=== PATIENT | female | born 1950 | race Caucasian/White ===

== ENCOUNTER 2020-01-13 12:46 | Emergency (ER) | payer MEDICARE, MEDICAID, SELFPAY ==
[2020-01-13 12:47] VITALS: BP 127/72; PULSE 75; RESP 18; TEMP 36.6; O2SAT 95; BMI 31.4
--- NOTE | 2020-01-13 12:52 | W.ED.BACK ---
HPI - Back Pain/Injury General: Chief Complaint: Back Pain/Injury Stated Complaint: LOW BACK PAIN S/P FALL Time Seen by Provider: 01/13/20 12:50 History of Present Illness: HPI Narrative: Patient is a 69-year-old female comes to the ED with lower back pain after a fall. Patient has a history of chronic lower back pain with bladder and bowel incontinence. Patient says fall occurred last January 09. Patient says she was walking in her parking lot and her legs gave out on her she lost balance and fell back. Patient that she had her lower back and the back of her head hit as well. Patient says she hit hard concrete surface. Denies any loss of consciousness, nausea or vomiting after fall. Patient says she currently is experiencing increasing lower back pain. Patient describes chronically having pain radiating down her left leg but after fall it radiates down both her left and right leg.. She currently rates her back pain 9 out of 10. Patient currently has bladder and bowel incontinence and says there is been no change in that since fall. Associated symptoms: Deny abdominal pain, chills, dysuria, fatigue, fever(s), hematuria, nausea or vomiting Review of Systems Const: Denies: fever(s), chills or fatigue Eyes: Denies: change in vision or eye discomfort ENMT: Denies: throat pain, odynophagia, nasal discharge or nasal congestion Card: Denies: chest pain, palpitations, edema, swelling of feet/ankles, dyspnea on exertion or orthopnea Resp: Denies: dyspnea, productive cough or non-productive cough GI: Denies: abdominal pain, nausea, vomiting, diarrhea, constipation or hematochezia : Denies: flank pain, dysuria or hematuria Musc: Reports: back pain (lower back pain with radiating pain down both r and l lower extremities.); Denies: neck pain or extremity swelling Skin/Breast: Denies: rash or new lesions Neuro: Denies: headache(s), numbness in extremities or weakness in extremities Physical Exam Const: COMMON NORMALS: patient oriented x3 and alert HENMT: COMMON NORMALS: normocephalic HEAD & SCALP: normocephalic MOUTH: Normal oral and palatal mucosa present THROAT: posterior oropharynx normal and uvula midline Eye: COMMON NORMALS: Equal, round and reactive pupils present, EOMs intact bilaterally, conjunctivae normal and normal visual [place] by confrontation CONJUNCTIVA: Yes conjunctivae normal PUPIL: Yes Equal, round and reactive pupils present Neck/C-Spine: COMMON NORMALS: supple GENERAL: Yes normal visual inspection Resp: COMMON NORMALS: normal respiratory effort, No retractions, No use of accessory muscles and clear to auscultation bilaterally AUSCULTATION: clear to auscultation bilaterally Cardio: COMMON NORMALS: regular rate, regular rhythm, S1 normal heart sound present, S2 normal heart sound present, No gallops present (Cardio), No clicks present (Cardio), No murmurs present (Cardio) and Peripheral pulses 2+ throughout RATE: regular rate RHYTHM: regular rhythm HEART SOUNDS: S1 normal heart sound present and S2 normal heart sound present PERIPHERAL PULSES: Peripheral pulses 2+ throughout GI: COMMON NORMALS: Normal to inspection, nondistended, normoactive bowel sounds present, Soft to palpation, non-tender and no masses PALPATION: Yes Soft to palpation : COMMON NORMALS: Yes no CVA tenderness BLADDER/KIDNEY EXAM: Yes no CVA tenderness Back/Pelvis: COMMON NORMALS: no CVA tenderness LUMBAR SPINE/LOWER BACK: Yes paraspinal muscle tenderness Extremity: COMMON NORMALS: normal to inspection and no pedal edema Neuro: COMMON NORMALS: patient oriented x3, CN's II-XII intact bilaterally, moves all extremities, no focal motor deficits and no sensory deficits noted SENSORIUM/ORIENTATION: Yes alert COORDINATION/BALANCE: [id number] test normal SENSORY EXAM: Yes extremities (sensation intact) MOTOR EXAM: 5/5 motor strength present throughout COORDINATION: poilwk-tf-whox test normal Skin: COMMON NORMALS: no rashes or lesions noted GENERAL SKIN EXAM: no rashes or lesions noted and dry skin Course Vital Signs: Vital signs: Vital Signs Temperature 97.9 F 01/13/20 12:47 Pulse Rate 74 01/13/20 15:37 Respiratory Rate 18 01/13/20 12:47 Blood Pressure 125/83 01/13/20 15:37 Pulse Oximetry 91 01/13/20 15:37 MDM - Back Pain/Injury MDM Narrative: Medical decision making narrative: Patient is a 69-year-old female comes to the ED after having a fall approximately 3 days ago. Patient says she fell back and hit him lower back and the back of her head hit the ground. Denies any loss of consciousness neuro symptoms. Patient does state that her lower back pain is gotten worse now she has pain rating down both her left and right legs. Physical exam showed some lumbar muscle tenderness and neuro exam are unremarkable. CT of head showed no acute findings. CT lumbar spine showed no acute fractures or foraminal narrowing or disc bulge. Was discharged and diagnosed with lumbar back pain after fall. She was told to take Tylenol for pain and to rest and ice lower back to help with symptoms. Return to ED precautions given. Follow-up with PCP in 7 to 10 days. Patient understood and agreed with plan. Imaging Data^: CT Head: Attestation: I personally reviewed and interpreted this imaging study as follows: Radiologist's impression: [address] [place] [address] CT Scan Report Signed Patient: Sara Del Real Unit #: [id number] : 1950 Age/Sex: 69 / F ADM Date: 01/13/20 Loc: ER Room/Bed: Attending Dr: Ordering Provider/Ordering MD: Darío Aquino Date of Service: 01/13/20 Procedure(s): CT head wo con* [id number] Accession Number(s): [id number] Report Number: [id number] PROCEDURE INFORMATION: Exam: CT Head Without Contrast Exam date and time: 01/13/2020 2:25 PM Age: 69 years old Clinical indication: Injury or trauma; Initial encounter; Blunt trauma (contusions or hematomas); With loss of consciousness; Loss of consciousness for 30 minutes or less; Patient HX: Backwards fall while walking 3 days ago C/O ARIAS w +loc; Additional info: Fall and hit head TECHNIQUE: Imaging protocol: Computed tomography of the head without contrast. Radiation optimization: All CT scans at this facility use at least one of these dose optimization techniques: automated exposure control; mA and/or kV adjustment per patient size (includes targeted exams where dose is matched to clinical indication); or iterative reconstruction. COMPARISON: CT head wo con* [id number] 11/22/2017 8:08 PM RADIATION DOSE METRICS: Total DLP (mGy-cm): 729.5 FINDINGS: Brain: Periventricular and subcortical white matter low densities are present which at this age likely represent microvascular ischemic change. No evidence for large acute ischemic infarction. Please note acute ischemia can be occult by head CT. Ventricles: No ventriculomegaly. Bones/joints: Unremarkable. No acute fracture. Paranasal sinuses: Visualized sinuses are unremarkable. No fluid levels. Mastoid air cells: Visualized mastoid air cells are well aerated. Vasculature: Calcified plaque is present within the carotid siphons. Soft tissues: Unremarkable. CT/CT head wo con* [id number] IMPRESSION: There are senescent changes of the brain as described above. No evidence for large acute ischemic infarction or acute intracranial injury. Radiation Dose CTDIVOL = (mGy): DLP = 729.5 (mGy-cm) Dictated By: Geeta Garcia MD Signed By: Geeta Garcia MD Signed Date/Time: 01/13/201510 DD/ [address]: Attestation: I personally reviewed and interpreted this imaging study as follows: Radiologist's impression: [place] [address] CT Scan Report Signed Patient: Sara Del Real Unit #: [id number] : 1950 Age/Sex: 69 / F ADM Date: 01/13/20 Loc: ER Room/Bed: Attending Dr: Ordering Provider/Ordering MD: Darío Aquino Date of Service: 01/13/20 Procedure(s): CT lumbar spine wo con* [id number] Accession Number(s): [id number] Report Number: [id number] PROCEDURE INFORMATION: Exam: CT Lumbar Spine Without Contrast Exam date and time: 01/13/2020 2:25 PM Age: 69 years old Clinical indication: Injury or trauma; Initial encounter; Blunt trauma (contusions or hematomas); Patient HX: Backwards fall while walking 3 days ago C/O worsened chronic lbp; Additional info: Fall with lumbar pain TECHNIQUE: Imaging protocol: Computed tomography images of the lumbar spine without contrast. Radiation optimization: All CT scans at this facility use at least one of these dose optimization techniques: automated exposure control; mA and/or kV adjustment per patient size (includes targeted exams where dose is matched to clinical indication); or iterative reconstruction. COMPARISON: No relevant prior studies available. RADIATION DOSE METRICS: Total DLP (mGy-cm): 2314.76 FINDINGS: Vertebrae: No acute fracture. Advanced facet arthrosis L4/L5. Minimal anterior spondylolisthesis L4 on L5 secondary to ligamentous laxity from the facet disease. Mild facet arthrosis L5/S1. Discs/Spinal canal/Neural foramina: No significant disc protrusion. No severe spinal canal stenosis. No significant neural foraminal narrowing. Mild central canal narrowing L4/L5 secondary to a mild posterior disc bulge aggravated by ligamentum flavum hypertrophy and facet arthrosis. Soft tissues: Unremarkable. CT/CT lumbar spine wo con* [id number] IMPRESSION: No acute findings. Radiation Dose CTDIVOL = (mGy): DLP = 2314.76 (mGy-cm) Dictated By: Domo Giang Signed By: Domo Giang Signed Date/Time: 01/13/201505 DD/ 03 Discharge Plan Discharge Patient Disposition: Home Clinical Impression: Lumbar back pain Fall as cause of accidental injury at home as place of occurrence Qualifiers: Encounter type: initial encounter Qualified Code(s): W19.XXXA - Unspecified fall, initial encounter Condition: Stable Prescriptions: No Action hydrocodone-acetaminophen 5-325 mg tablet 1 tab PO TID PRN (Reason: Pain) RF: 0 ondansetron HCl 8 mg tablet 8 mg PO TID PRN (Reason: Nausea) RF: 0 clonazepam 0.5 mg tablet 0.5 mg PO TID PRN (Reason: unknown) RF: 0 baclofen 20 mg tablet 20 mg PO TID RF: 0 nortriptyline 25 mg capsule 25 - 50 mg PO BEDTIME RF: 0 lisinopril 10 mg tablet 10 mg PO DAILY RF: 0 omeprazole 20 mg capsule,delayed release(DR/EC) 20 mg PO DAILY RF: 0 hydrochlorothiazide 25 mg tablet 25 mg PO DAILY RF: 0 Advair Diskus 100-50 mcg/dose blister with device 2 ea INHALATION BID RF: 0 Ventolin HFA 90 mcg/actuation HFA aerosol inhaler 2 puff INHALATION Q4H PRN (Reason: Shortness Of Breath) RF: 0 escitalopram oxalate 20 mg tablet 20 mg PO BID RF: 0 pregabalin 200 mg capsule 200 mg PO TID RF: 0 Narcan 4 mg/actuation spray,non-aerosol See Rx Instructions .ROUTE .COMPLEX RF: 0 Discharge Orders: Discharge Order (Routine); Ordered 01/13/20 Ordered By: Darío Aquino Referrals: Carroll Johnson [Primary Care Provider] - Discharge Diet: Regular Discharge Activity: Increase activity as tolerated Patient Instructions: Acute Low Back Pain (ED), Chronic Back Pain (ED) Activity Restrictions/Additional Instructions: Follow-up with medical provider as directed in 7 days. Take [id number] Tylenol for pain. Apply cold pack or heat on lower back to help with symptoms. Return to the ER or your medical provider if condition worsens. Please read and understand discharge instructions. If any questions, please ask. Discharge Date/Time: 01/13/20 15:37 Coding Level of Care Code ED Electrical Development Engineer for [facility] Fwd Exam Comprehensive
--- NOTE | 2020-01-13 13:02 | CTR_ITS ---
PROCEDURE INFORMATION: Exam: CT Head Without Contrast Exam date and time: 01/13/2020 2:25 PM Age: 69 years old Clinical indication: Injury or trauma; Initial encounter; Blunt trauma (contusions or hematomas); With loss of consciousness; Loss of consciousness for 30 minutes or less; Patient HX: Backwards fall while walking 3 days ago C/O ARIAS w +loc; Additional info: Fall and hit head TECHNIQUE: Imaging protocol: Computed tomography of the head without contrast. Radiation optimization: All CT scans at this facility use at least one of these dose optimization techniques: automated exposure control; mA and/or kV adjustment per patient size (includes targeted exams where dose is matched to clinical indication); or iterative reconstruction. COMPARISON: CT head wo con* [id number] 11/22/2017 8:08 PM RADIATION DOSE METRICS: Total DLP (mGy-cm): 729.5 FINDINGS: Brain: Periventricular and subcortical white matter low densities are present which at this age likely represent microvascular ischemic change. No evidence for large acute ischemic infarction. Please note acute ischemia can be occult by head CT. Ventricles: No ventriculomegaly. Bones/joints: Unremarkable. No acute fracture. Paranasal sinuses: Visualized sinuses are unremarkable. No fluid levels. Mastoid air cells: Visualized mastoid air cells are well aerated. Vasculature: Calcified plaque is present within the carotid siphons. Soft tissues: Unremarkable. CT/CT head wo con* [id number] IMPRESSION: There are senescent changes of the brain as described above. No evidence for large acute ischemic infarction or acute intracranial injury. Radiation Dose CTDIVOL = (mGy): DLP = 729.5 (mGy-cm)
--- NOTE | 2020-01-13 13:02 | CTR_ITS ---
PROCEDURE INFORMATION: Exam: CT Lumbar Spine Without Contrast Exam date and time: 01/13/2020 2:25 PM Age: 69 years old Clinical indication: Injury or trauma; Initial encounter; Blunt trauma (contusions or hematomas); Patient HX: Backwards fall while walking 3 days ago C/O worsened chronic lbp; Additional info: Fall with lumbar pain TECHNIQUE: Imaging protocol: Computed tomography images of the lumbar spine without contrast. Radiation optimization: All CT scans at this facility use at least one of these dose optimization techniques: automated exposure control; mA and/or kV adjustment per patient size (includes targeted exams where dose is matched to clinical indication); or iterative reconstruction. COMPARISON: No relevant prior studies available. RADIATION DOSE METRICS: Total DLP (mGy-cm): 2314.76 FINDINGS: Vertebrae: No acute fracture. Advanced facet arthrosis L4/L5. Minimal anterior spondylolisthesis L4 on L5 secondary to ligamentous laxity from the facet disease. Mild facet arthrosis L5/S1. Discs/Spinal canal/Neural foramina: No significant disc protrusion. No severe spinal canal stenosis. No significant neural foraminal narrowing. Mild central canal narrowing L4/L5 secondary to a mild posterior disc bulge aggravated by ligamentum flavum hypertrophy and facet arthrosis. Soft tissues: Unremarkable. CT/CT lumbar spine wo con* [id number] IMPRESSION: No acute findings. Radiation Dose CTDIVOL = (mGy): DLP = 2314.76 (mGy-cm)
[2020-01-13] MEDS: HYDROcodone-acetaminophen 7.5-325 mg Tablet 1 TAB PO (13:16)
[2020-01-13 15:37] VITALS: BP 125/83; PULSE 74; O2SAT 91
== END 2020-01-13 15:37 | disposition home or self-care (01) ==
PROVIDERS: Emergency Provider Physician Assistant; PCP Family Medicine
DX: M54.5 Low back pain (principal)
CPT/HCPCS: 12345; 70450; 72131; 99281; 99283

== ENCOUNTER 2021-02-27 14:37 | Emergency (ER) | payer MEDICARE, MEDICAID, SELFPAY ==
[2021-02-27 15:06] VITALS: BP 153/90; PULSE 79; RESP 18; TEMP 36.4; O2SAT 98; BMI 28.3
[2021-02-27 15:21] VITALS: BP 153/90; PULSE 79; RESP 18; TEMP 36.4; O2SAT 98
--- NOTE | 2021-02-27 15:54 | XR_ITS ---
WS: [id number] LEFT FOOT: 3 VIEW(S) TECHNIQUE: AP, oblique and lateral. HISTORY: foot injury COMPARISON: 12/10/2016 Very limited evaluation of the foot due to the overlying partial cast. On the lateral projection ther e is no significant soft tissue swelling. The alignment appears normal. Limited evaluation on the PA projection but no gross abnormality. Prior fixation hardware at the ankle. XR/XR foot LT min 3V* [id number] IMPRESSION: 1. Limited evaluation of the foot due to partial cast material. 2. No obvious abnormality or fractures are identified on the lateral projectio n. PA projections very limited.
--- NOTE | 2021-02-27 15:55 | W.ED.FALL ---
HPI - Fall General: Chief Complaint: Fall Stated Complaint: L FOOT PAIN Time Seen by Provider: 02/27/21 15:16 History of Present Illness: HPI Narrative: Patient is a 71-year-old female comes to the ED with left foot pain after fall. Patient states that about 2 weeks ago she had a fall at home. She denies any head trauma or loss of consciousness. When she fell she says it twisted her left foot causing pain. Patient was seen at her primary care office and they told her that she had a fracture and wrapped her foot and some Luis wrap. She was discharged home with some hydrocodone to help with pain. She states that she is out of her hydrocodone and she is having increased pain in her left foot. Associated symptoms-after fall: Denies abdominal pain, chest pain, headache(s), hematuria or neck pain Review of Systems Const: Denies: fever(s), chills or fatigue Eyes: Denies: change in vision or eye discomfort ENMT: Denies: throat pain, odynophagia, nasal discharge or nasal congestion Card: Denies: chest pain, palpitations, edema, swelling of feet/ankles, dyspnea on exertion or orthopnea Resp: Denies: dyspnea, productive cough or non-productive cough GI: Denies: abdominal pain, nausea, vomiting, diarrhea, constipation or hematochezia : Denies: flank pain, dysuria or hematuria Musc: Reports: extremity pain (left foot) and extremity swelling (left foot); Denies: neck pain or back pain Skin/Breast: Denies: rash or new lesions Neuro: Denies: headache(s), numbness in extremities or weakness in extremities Physical Exam Const: COMMON NORMALS: no acute distress, patient oriented x3 and alert GENERAL APPEARANCE: cooperative and comfortable HENMT: COMMON NORMALS: normocephalic HEAD & SCALP: normocephalic MOUTH: Normal oral and palatal mucosa present THROAT: posterior oropharynx normal and uvula midline Neck/C-Spine: COMMON NORMALS: supple GENERAL: Yes normal visual inspection Resp: COMMON NORMALS: normal respiratory effort, No retractions, No use of accessory muscles and clear to auscultation bilaterally AUSCULTATION: clear to auscultation bilaterally Cardio: COMMON NORMALS: regular rate, regular rhythm, S1 normal heart sound present, S2 normal heart sound present, No gallops present (Cardio), No clicks present (Cardio), No murmurs present (Cardio) and Peripheral pulses 2+ throughout RATE: regular rate RHYTHM: regular rhythm HEART SOUNDS: S1 normal heart sound present and S2 normal heart sound present PERIPHERAL PULSES: Peripheral pulses 2+ throughout GI: COMMON NORMALS: Normal to inspection, nondistended, normoactive bowel sounds present, Soft to palpation, non-tender and no masses PALPATION: Yes Soft to palpation : COMMON NORMALS: Yes no CVA tenderness BLADDER/KIDNEY EXAM: Yes no CVA tenderness Back/Pelvis: COMMON NORMALS: no CVA tenderness Extremity: LEFT LOWER EXTREMITY: Yes foot & digits (Patient came in with a posterior leg splint on) Left foot and digits: Yes inspection (Mild swelling and ecchymosis noted.), Yes palpation (Tenderness over midfoot), Yes ROM (Limited due to pain) and Yes neurovascular exam (Neurovascular intact.) Neuro: COMMON NORMALS: patient oriented x3 and moves all extremities SENSORIUM/ORIENTATION: Yes alert Skin: GENERAL SKIN EXAM: dry skin Course Vital Signs: Vital signs: Vital Signs Temperature 97.6 F 02/27/21 15:21 Pulse Rate 79 02/27/21 15:21 Respiratory Rate 18 02/27/21 15:21 Blood Pressure 153/90 02/27/21 15:21 Pulse Oximetry 98 02/27/21 15:21 MDM - Fall MDM Narrative: Medical decision making narrative: Patient is a 71-year-old female comes to the ED with left foot pain after a fall. Patient's left foot has some swelling, ecchymosis and tenderness in the midfoot region. Neurovascular intact and the rest of exam is benign. X-ray of left foot showed multiple nondisplaced metatarsal fractures along with a nondisplaced proximal phalanx fracture. I placed an order with case management for patient be referred to podiatry due to the multiple fractures in the left foot. Patient was put in a Ortho boot and discharged home with a prescription for hydrocodone 5/325 mg # 8 tablets. She was told to use her walker to help with ambulation. general sales manager will be contacting her in the next several days set up an appointment with Dr. Schumacher the computer forensics examiner. Return to ED precautions given. Patient understood and agreed with plan. Imaging Data^: Xray Ortho: Attestation: I personally reviewed and interpreted this imaging study as follows: Radiologist's impression: [facility] [address] [place] [address] XRay Report Signed Patient: Sara Del Real Unit #: [id number] : 1950 Age/Sex: 71 / F ADM Date: 02/27/21 Loc: ER Room/Bed: Attending Dr: Ordering Provider/Ordering MD: Darío Aquino Date of Service: 02/27/21 Procedure(s): XR foot LT min 3V* [id number] Accession Number(s): [id number] Report Number: [id number] WS: [id number] LEFT FOOT: 3 VIEW(S) TECHNIQUE: AP, oblique and lateral. HISTORY: repeat imaging after splint removal. COMPARISON: None available. Acute nondisplaced fractures are present through the proximal second, third, fourth and probably fifth metatarsals. Additional oblique fracture at the base of the fourth proximal phalanx. There is a fracture involving the proximal first metatarsal with intra-articular extension. Tarsometatarsal alignment remains normal. Irregularity involving the second metatarsal head may be from prior osteonecrosis. XR/XR foot LT min 3V* [id number] IMPRESSION: 1. Nondisplaced transverse fractures involving the second through fourth proximal metatarsals and possibly the fifth. 2. Nondisplaced oblique fracture proximal phalanx fourth toe. 3. Nondisplaced fracture proximal fifth metatarsal with extension into the joint. Dictated By: Gabbi Barbour DO Signed By: Gabbi Barbour DO Signed Date/Time: 02/27/211649 DD/ 164 Discharge Plan Discharge Patient Disposition: Home Clinical Impression: Closed fracture of proximal phalanx of toe of left foot Multiple closed fractures of metatarsal bone of left foot Qualifiers: Encounter type: initial encounter Qualified Code(s): S92.302A - Fracture of unspecified metatarsal bone(s), left foot, initial encounter for closed fracture Condition: Stable Prescriptions: No Action hydrocodone-acetaminophen 5-325 mg tablet 1 tab PO TID PRN (Reason: Pain) RF: 0 ondansetron HCl 8 mg tablet 8 mg PO TID PRN (Reason: Nausea) RF: 0 clonazepam 0.5 mg tablet 0.5 mg PO TID PRN (Reason: unknown) RF: 0 baclofen 20 mg tablet 20 mg PO TID RF: 0 nortriptyline 25 mg capsule 25 - 50 mg PO BEDTIME RF: 0 lisinopril 10 mg tablet 10 mg PO DAILY RF: 0 omeprazole 20 mg capsule,delayed release(DR/EC) 20 mg PO DAILY RF: 0 hydrochlorothiazide 25 mg tablet 25 mg PO DAILY RF: 0 Advair Diskus 100-50 mcg/dose blister with device 2 ea INHALATION BID RF: 0 Ventolin HFA 90 mcg/actuation HFA aerosol inhaler 2 puff INHALATION Q4H PRN (Reason: Shortness Of Breath) RF: 0 escitalopram oxalate 20 mg tablet 20 mg PO BID RF: 0 pregabalin 200 mg capsule 200 mg PO TID RF: 0 Narcan 4 mg/actuation spray,non-aerosol See Rx Instructions .ROUTE .COMPLEX RF: 0 Discharge Orders: Discharge ED (Routine); Ordered 02/27/21 Ordered By: Darío Aquino Referrals: Carroll Johnson [Primary Care Provider] - Discharge Diet: Regular Discharge Activity: Resume usual activity Patient Instructions: Foot Fracture in Adults (ED), Opioid Safety Activity Restrictions/Additional Instructions: Follow-up with medical provider as directed. Case management will be contacting you in the next several days set up an appoint with Dr. Schumacher the computer forensics examiner. Wear boot and limit weightbearing. Use walker to help with ambulation. Take medications as prescribed. Return to the ER or your medical provider if condition worsens. Please read and understand discharge instructions. Thank you for choosing [facility] for your healthcare needs today. Please realize this is an emergency room and that we are providing you with a medical screening exam and this may not be complete and all inclusive of all the testing and or work up that you may need to determine your ailment or severity of your illness. It is very important that you follow up as instructed or that you return to the Emergency Department should you have concerns or if your condition changes or worsens in any way. Coding Level of Care Code ED Automobile Locator for [facility] Fwfatimah Exam Comprehensive
[2021-02-27] MEDS: HYDROcodone-acetaminophen 5-325 mg Tablet 1 TAB PO (16:02)
--- NOTE | 2021-02-27 16:27 | XR_ITS ---
WS: [id number] LEFT FOOT: 3 VIEW(S) TECHNIQUE: AP, oblique and lateral. HISTORY: repeat imaging after splint removal. COMPARISON: None available. Acute nondisplaced fractures are present through the proximal second, third, fourth and probably fift h metatarsals. Additional oblique fracture at the base of the fourth proximal phalanx. There is a fra cture involving the proximal first metatarsal with intra-articular extension. Tarsometatarsal alignment remains normal. Irregularity involving the second metatarsal head may be from prior osteonecrosis. XR/XR foot LT min 3V* [id number] IMPRESSION: 1. Nondisplaced transverse fractures involving the second through fourth proxi mal metatarsals and possibly the fifth. 2. Nondisplaced oblique fracture proximal phalanx fourth toe. 3. Nondisplaced fracture proximal fifth metatarsal with extension into the roderick nt.
--- NOTE | 2021-02-27 16:30 | PC.NURSE ---
PATIENT HAD CASTING SURROUNDING FOOT AND WOULD NOT LET XRAY REMOVE WRAP FOR EXAM. PROVIDER ORDERED SECOND SET OF XRAYS WITH CASTING OFF. CASTING REMOVED. PATIENT TOLERATED WELL.
--- NOTE | 2021-02-27 16:38 | PC.NURSE ---
PATIENT RATING PAIN A 10/10 SINCE REMOVING CAST AND PADDING.
--- NOTE | 2021-03-02 09:38 | DCPLANNER ---
network operations manager had marketing compliance manager had message to schedule a follow up appointment for patient with ortho. network operations manager called the ortho clinic, spoke with Monse, gave clinic patients information. network operations manager was told that patients information would be printed and reviewed. Clinic will call patient with appointment information.
--- NOTE | 2021-03-04 14:32 | DCPLANNER ---
Addendum entered by Amberly Smiley 05/16/21 12:29: Patient had a follow up appointment scheduled with ortho - patient did not attend appointment. Original Note: Patient has a followup appointment scheduled for Saturday, March 06, 2021 at 12:[address] Schumacher at ortho. Clinic will call patient with appointment information.
== END 2021-02-27 18:03 | disposition home or self-care (01) ==
PROVIDERS: Emergency Provider Physician Assistant; PCP Family Medicine
DX: S92.325A Nondisplaced fracture of second metatarsal bone, left foot, initial encounter for closed fracture (principal); S92.335A Nondisplaced fracture of third metatarsal bone, left foot, initial encounter for closed fracture; S92.345A Nondisplaced fracture of fourth metatarsal bone, left foot, initial encounter for closed fracture; S92.515A Nondisplaced fracture of proximal phalanx of left lesser toe(s), initial encounter for closed fracture; S92.355A Nondisplaced fracture of fifth metatarsal bone, left foot, initial encounter for closed fracture; W19.XXXA Unspecified fall, initial encounter
CPT/HCPCS: 73630; 99283; L4361

== ENCOUNTER 2021-03-09 14:51 | Emergency (ER) | payer MEDICARE, MEDICAID, SELFPAY ==
--- NOTE | 2021-03-09 | XR_ITS ---
WS: [id number] Exam: XR foot RT min 3V* [id number] Date/Time of Exam: 03/09/2021 3:02 PM Reason For Exam: previous injuries; pain; poss repeat injury There are nondisplaced fractures involving the proximal first through the fourth metatarsals remainin g in good alignment. There is also a nondisplaced fracture at base of proximal phalanx of the fourth toe. Old deformity of the head of the second metatarsal may be secondary to prior trauma. Degenerativ e change at the first MP joint. There is hardware noted in the distal tibia and fibula. XR/XR foot LT min 3V* [id number] IMPRESSION: 1. Healing nondisplaced fractures involving the first of the fourth metatarsals remaining in good alignment. 2. Nondisplaced fracture at the base of the proximal phalanx of the fourth toe. 3. Degenerative changes and additional nonacute findings as above.
--- NOTE | 2021-03-09 15:02 | XR_ITS ---
WS: [id number] Exam: XR foot RT min 3V* [id number] Date/Time of Exam: 03/09/2021 3:02 PM Reason For Exam: previous injuries; pain; poss repeat injury There are nondisplaced fractures involving the proximal first through the fourth metatarsals remainin g in good alignment. There is also a nondisplaced fracture at base of proximal phalanx of the fourth toe. Old deformity of the head of the second metatarsal may be secondary to prior trauma. Degenerativ e change at the first MP joint. There is hardware noted in the distal tibia and fibula.
--- NOTE | 2021-03-09 15:03 | W.ED.UPPEXIN ---
HPI - Extremity Injury (Upper) General: Stated Complaint: FOOT PAIN Time Seen by Provider: 03/09/21 14:52 Discharge Plan Discharge Prescriptions: No Action hydrocodone-acetaminophen 5-325 mg tablet 1 tab PO TID PRN (Reason: Pain) RF: 0 ondansetron HCl 8 mg tablet 8 mg PO TID PRN (Reason: Nausea) RF: 0 clonazepam 0.5 mg tablet 0.5 mg PO TID PRN (Reason: unknown) RF: 0 baclofen 20 mg tablet 20 mg PO TID RF: 0 nortriptyline 25 mg capsule 25 - 50 mg PO BEDTIME RF: 0 lisinopril 10 mg tablet 10 mg PO DAILY RF: 0 omeprazole 20 mg capsule,delayed release(DR/EC) 20 mg PO DAILY RF: 0 hydrochlorothiazide 25 mg tablet 25 mg PO DAILY RF: 0 Advair Diskus 100-50 mcg/dose blister with device 2 ea INHALATION BID RF: 0 Ventolin HFA 90 mcg/actuation HFA aerosol inhaler 2 puff INHALATION Q4H PRN (Reason: Shortness Of Breath) RF: 0 escitalopram oxalate 20 mg tablet 20 mg PO BID RF: 0 pregabalin 200 mg capsule 200 mg PO TID RF: 0 Narcan 4 mg/actuation spray,non-aerosol See Rx Instructions .ROUTE .COMPLEX RF: 0 Coding Level of Care Code ED Electrician Supervisor Airplane for Lanre Conde
[2021-03-09 15:06] VITALS: PULSE 71; RESP 18; TEMP 36.8; O2SAT 99; BMI 27.4
--- NOTE | 2021-03-09 15:13 | ED_ITS ---
Documented by User: TRINA Shelton 03/10/21 07:24 HPI - Extremity Injury (Lower) General: Chief Complaint: Extremity Injury, Lower Stated Complaint: FOOT PAIN Time Seen by Provider: 03/09/21 14:52 Source: patient and EMS Mode of arrival: EMS Limitations: no limitations History of Present Illness: HPI Narrative: Patient is a 71-year-old female presents to ED today with complaint of left foot pain. 10 days ago patient was seen at our facility and diagnosed with multiple foot fractures. She was scheduled to follow-up with Dr. Schumacher on 03/03 but was unfortunately a no-show. Documentation and patient history states she has no mode of transportation to get to and from her appointments. Patient tells me she is not sure if she reinjured the foot but reports possibly tripping. She has been wearing her cam walker and ambulating on her heel since injury. Review of Systems Musc: Reports: extremity pain (L foot pain); Denies: extremity swelling, joint pain or joint swelling Skin/Breast: Denies: changes in skin color Neuro: Denies: numbness in extremities or sensory changes Physical Exam Const: COMMON NORMALS: no acute distress, patient oriented x3, no limitations and alert GENERAL APPEARANCE: cooperative ORIENTATION/CONSCIOUSNESS: Yes awake, Yes oriented to person, Yes oriented to place and Yes oriented to time Extremity: GENERAL: Yes normal exam except as noted LEFT LOWER EXTREMITY: Yes foot & digits (TTP dorsal foot; mild non-pitting edema equal bilaterally) Left foot and digits: Yes neurovascular exam (normal) Neuro: COMMON NORMALS: patient oriented x3 SENSORIUM/ORIENTATION: Yes alert, Yes oriented to person, Yes oriented to place and Yes oriented to time Skin: COMMON NORMALS: no rashes or lesions noted GENERAL SKIN EXAM: no rashes or lesions noted TRAUMA: no lacerations or abrasions Course ED course: Patient did require a brief stent of O2 following IV pain medications. Upon discharge patient was taken off her O2 and satting at 96%. She is eating/drinking in room. Consultations: Consultation #1: Dr. Schumacher-agrees with outpatient follow up plan, fractures are not surgical, recommend outpt XR through his clinic in 2 weeks, recommends non-weight bearing. Vital Signs: Vital signs: Vital Signs Temperature 98.3 F 03/09/21 17:38 Pulse Rate 73 11/15/21 17:38 Respiratory Rate 18 03/09/21 17:38 Blood Pressure 136/93 03/09/21 17:38 Pulse Oximetry 95 03/09/21 17:38 MDM - Extremity Injury (Lower) MDM Narrative: Medical decision making narrative: Patient is here related to left foot pain following multiple fractures that she sustained 10 days ago. Patient was a no-show to her orthopedic appointment. Patient tells me she thought she had a friend who was going to bring her but the friend backed out . Patient does not have a working phone. She cannot remember any friend or family contact numbers to get a hold of her. Recommend when she gets home she uses her son's phone to contact the orthopedic clinic and set up another follow- up appointment. I also let her know that Dr. Schumacher graciously is willing to see her at any time as a walk-in if he is in office. Patient verbalizes understanding. I did check with CM regarding patient's insurance and she does q ualify for logistic care rides-she just has to schedule these 3 days in advance. Imaging Data^: XR L foot: Radiologist's impression: [address] [place] [address] XRay Report Signed Patient: Sara Del Real Unit #: [id number] : 1950 Age/Sex: 71 / F ADM Date: 03/09/21 Loc: ER Room/Bed: Attending Dr: Ordering Provider/Ordering MD: Zahraa Carvajal Date of Service: 03/09/21 Procedure(s): XR foot RT min 3V* [id number] Accession Number(s): [id number] Report Number: [id number] WS: [id number] Exam: XR foot RT min 3V* [id number] Date/Time of Exam: 03/09/2021 3:02 PM Reason For Exam: previous injuries; pain; poss repeat injury There are nondisplaced fractures involving the proximal first through the fourth metatarsals remaining in good alignment. There is also a nondisplaced fracture at base of proximal phalanx of the fourth toe. Old deformity of the head of the second metatarsal may be secondary to prior trauma. Degenerative change at the first MP joint. There is hardware noted in the distal tibia and fibula. XR/XR foot RT min 3V* [id number] IMPRESSION: 1. Healing nondisplaced fractures involving the first of the fourth metatarsals remaining in good alignment. 2. Nondisplaced fracture at the base of the proximal phalanx of the fourth toe. 3. Degenerative changes and additional nonacute findings as above. Dictated By: Alejandro Hills DO Signed By: Alejandro Hills DO Signed Date/Time: 03/09/211528 DD/ 23 Discharge Plan Discharge Patient Disposition: Home Clinical Impression: Multiple closed fractures of right foot Qualifiers: Encounter type: initial encounter Qualified Code(s): S92.901A - Unspecified fracture of right foot, initial encounter for closed fracture Condition: Stable Prescriptions: New hydrocodone-acetaminophen 7.5-325 mg tablet 1 tab PO Q6H PRN (Reason: pain) Qty: 20 RF: 0 Discontinued hydrocodone-acetaminophen 5-325 mg tablet 1 tab PO TID PRN (Reason: Pain) RF: 0 No Action ondansetron HCl 8 mg tablet 8 mg PO TID PRN (Reason: Nausea) RF: 0 clonazepam 0.5 mg tablet 0.5 mg PO TID PRN (Reason: unknown) RF: 0 baclofen 20 mg tablet 20 mg PO TID RF: 0 nortriptyline 25 mg capsule 25 - 50 mg PO BEDTIME RF: 0 lisinopril 10 mg tablet 10 mg PO DAILY RF: 0 omeprazole 20 mg capsule,delayed release(DR/EC) 20 mg PO DAILY RF: 0 hydrochlorothiazide 25 mg tablet 25 mg PO DAILY RF: 0 Advair Diskus 100-50 mcg/dose blister with device 2 ea INHALATION BID RF: 0 Ventolin HFA 90 mcg/actuation HFA aerosol inhaler 2 puff INHALATION Q4H PRN (Reason: Shortness Of Breath) RF: 0 escitalopram oxalate 20 mg tablet 20 mg PO BID RF: 0 pregabalin 200 mg capsule 200 mg PO TID RF: 0 Narcan 4 mg/actuation spray,non-aerosol See Rx Instructions .ROUTE .COMPLEX RF: 0 Discharge Orders: Discharge ED (Routine); Ordered 03/09/21 Ordered By: Zahraa Carvajal Referrals: Carroll Johnson [Primary Care Provider] - Dutch Schumacher DPM [Physician] - Patient Instructions: Opioid Safety Activity Restrictions/Additional Instructions: [facility] is committed to fighting the nationwide opiate epidemic. We are providing ALL patients with information regarding opiate safety. If you received opiate pain medication during your stay or if you received a pres cription for opiate pain medication-please review this handout. If not, you may disregard. Thank you. As we discussed you are not able to provide me a phone number for follow-up appointments. You stated your phone does not work and you are not able to recall your son's phone number or a friend's phone number to contact you. I would recommend at this time when you get home that you use your son's phone to contact the orthopedic clinic/Dr. Schumacher's office to see if they can schedule you an appointment this way. Once you have your appointment you need to contact logistic care and schedule your ride as this requires 3 days in advance. As we discussed Dr. Schumacher graciously is willing to see you at anytime he is in clinic as a walk-in if you were able to get a ride. Please contact the clinic prior to arrival to make sure he is in clinic. Coding Level of Care Code ED Tire Service Technician for Chg Fwd Exam Expanded Problem Focused Documented by User: Chemo Phelan MD 03/12/21 22:50 HPI - Extremity Injury (Lower) General: Chief Complaint: Extremity Injury, Lower Stated Complaint: FOOT PAIN Time Seen by Provider: 03/09/21 14:52 Course Vital Signs: Vital signs: Vital Signs Temperature 98.3 F 03/09/21 17:38 Pulse Rate 73 03/09/21 17:38 Respiratory Rate 18 03/09/21 17:38 Blood Pressure 136/93 03/09/21 17:38 Pulse Oximetry 95 03/09/21 17:38 MDM - Extremity Injury (Lower) MDM Narrative: Medical decision making narrative: I discussed this case with TRINA Shelton. Episodes of mild hypoxemia well-known complication/expected side effect of opioid analgesia. Patient serially observed and no longer requiring oxygen. Therefore can be discharged in satisfactory condition. Chemo Phelan MD Emergency Medicine Discharge Plan Discharge Patient Disposition: Home Clinical Impression: Multiple closed fractures of right foot Qualifiers: Encounter type: initial encounter Qualified Code(s): S92.901A - Unspecified fracture of right foot, initial encounter for closed fracture Condition: Stable Prescriptions: New hydrocodone-acetaminophen 7.5-325 mg tablet 1 tab PO Q6H PRN (Reason: pain) Qty: 20 RF: 0 Discontinued hydrocodone-acetaminophen 5-325 mg tablet 1 tab PO TID PRN (Reason: Pain) RF: 0 No Action ondansetron HCl 8 mg tablet 8 mg PO TID PRN (Reason: Nausea) RF: 0 clonazepam 0.5 mg tablet 0.5 mg PO TID PRN (Reason: unknown) RF: 0 baclofen 20 mg tablet 20 mg PO TID RF: 0 nortriptyline 25 mg capsule 25 - 50 mg PO BEDTIME RF: 0 lisinopril 10 mg tablet 10 mg PO DAILY RF: 0 omeprazole 20 mg capsule,delayed release(DR/EC) 20 mg PO DAILY RF: 0 hydrochlorothiazide 25 mg tablet 25 mg PO DAILY RF: 0 Advair Diskus 100-50 mcg/dose blister with device 2 ea INHALATION BID RF: 0 Ventolin HFA 90 mcg/actuation HFA aerosol inhaler 2 puff INHALATION Q4H PRN (Reason: Shortness Of Breath) RF: 0 escitalopram oxalate 20 mg tablet 20 mg PO BID RF: 0 pregabalin 200 mg capsule 200 mg PO TID RF: 0 Narcan 4 mg/actuation spray,non-aerosol See Rx Instructions .ROUTE .COMPLEX RF: 0 Discharge Orders: Discharge ED (Routine); Ordered 03/09/21 Ordered By: Zahraa Carvajal Referrals: Carroll Johnson [Primary Care Provider] - Dutch Schumacher DPM [Physician] - Patient Instructions: Opioid Safety Activity Restrictions/Additional Instructions: [facility] is committed to fighting the nationwide opiate epidemic. We are providing ALL patients with information regarding opiate safety. If you received opiate pain medication during your stay or if you received a prescription for opiate pain medication-please review this handout. If not, you may disregard. Thank you. As we discussed you are not able to provide me a phone number for follow-up appointments. You stated your phone does not work and you are not able to recall your son's phone number or a friend's phone number to contact you. I would recommend at this time when you get home that you use your son's phone to contact the orthopedic clinic/Dr. Schumacher's office to see if they can schedule you an appointment this way. Once you have your appointment you need to contact logistic care and schedule your ride as this requires 3 days in advance. As we discussed Dr. Schumacher graciously is willing to see you at anytime he is in clinic as a walk-in if you were able to get a ride. Please contact the clinic prior to arrival to make sure he is in clinic. Coding Level of Care Code ED Tire Service Technician for Farihag Fwd Exam Expanded Problem Focused
[2021-03-09 15:15] VITALS: BP 131/70; PULSE 70; RESP 18; TEMP 36.9; O2SAT 99
--- NOTE | 2021-03-09 15:18 | PC.NURSE ---
Pt received 4 mg zofran and 50 mcg of fentanyl by ems at 1412.
[2021-03-09 15:45] VITALS: RESP 18; O2SAT 92
[2021-03-09] MEDS: morphine 4 mg/mL SDV 1 mL 2 MG IVP (15:45)
[2021-03-09 17:38] VITALS: BP 136/93; PULSE 73; RESP 18; TEMP 36.8; O2SAT 95
== END 2021-03-09 17:40 | disposition home or self-care (01) ==
PROVIDERS: Emergency Provider Physician Assistant; PCP Family Medicine
DX: S92.512A Displaced fracture of proximal phalanx of left lesser toe(s), initial encounter for closed fracture (principal); S92.314A Nondisplaced fracture of first metatarsal bone, right foot, initial encounter for closed fracture; S92.324A Nondisplaced fracture of second metatarsal bone, right foot, initial encounter for closed fracture; S92.334A Nondisplaced fracture of third metatarsal bone, right foot, initial encounter for closed fracture; S92.344A Nondisplaced fracture of fourth metatarsal bone, right foot, initial encounter for closed fracture; X58.XXXA Exposure to other specified factors, initial encounter
CPT/HCPCS: 73630; 96374; 99283; J2270

== ENCOUNTER → 2021-05-06 10:35 | Outpatient (BNVA) | payer MEDICARE, MEDICAID, SELFPAY | PROVIDERS: PCP Family Medicine; Visit Provider Podiatrist Foot & Ankle Surgery | DX: M19.072 Primary osteoarthritis, left ankle and foot (principal) | CPT/HCPCS: 73630 ==

== ENCOUNTER 2022-02-20 14:24 | Inpatient (IN) | payer MEDICARE, MEDICAID, SELFPAY ==
[2022-02-20 14:36] VITALS: BP 171/86; PULSE 87; RESP 18; TEMP 36.8; O2SAT 93; BMI 29.7
--- NOTE | 2022-02-20 14:41 | XRR_ITS ---
PROCEDURE INFORMATION: Exam: XR Chest Exam date and time: 02/20/2022 2:50 PM Age: 72 years old Clinical indication: Shortness of breath; Additional info: SOB TECHNIQUE: Imaging protocol: Radiologic exam of the chest. Views: 1 view. COMPARISON: CR XR chest 1V [id number] 11/08/2016 10:32 AM FINDINGS: Lungs: Stable COPD . Pleural spaces: Unremarkable. No pleural effusion. No pneumothorax. Heart/Mediastinum: Unremarkable. No cardiomegaly. Bones/joints: Stable healed metallic fixation of right clavicular fracture. XR/XR chest 1V portable [id number] IMPRESSION: Stable COPD .
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
[2022-02-20 16:28] LABS: Basophils # 0.1 10^3/uL (0.0-0.1); Basophils % 0.3 %; Eosinophils % 0.1 %; Hematocrit 47.4 % (37.0-47.0); Hemoglobin 15.1 g/dL (11.5-15.3); Lymphocytes # 1.7 10^3/uL (0.8-4.8); Lymphocytes % 11.2 %; Mean Corpuscular HGB Conc 31.9 g/dL (30.0-36.0); Mean Corpuscular Hemoglobin 30.4 pg (28.0-34.0); Mean Corpuscular Volume 95.4 fl (81-99); Mean Platelet Volume 11.9 fL (7.4-10.4); Monocytes # 0.8 10^3/uL (0.2-0.9); Neutrophils % 81.6 %; Nucleated Red Blood Cells % 0 %; Platelet Count 251 10^3/cmm (130-400); Red Blood Count 4.97 10^6/uL (4.1-5.3); Red Cell Distribution Width 13.5 % (12.1-15.1); White Blood Count 15.1 10^3/uL (4.0-10.0)
[2022-02-20 16:51] LABS: Alanine Aminotransferase 22 U/L (0-33); Alkaline Phosphatase 77 U/L (35-105); Aspartate Amino Transferase 16 U/L (0-32); Blood Urea Nitrogen 22 mg/dL (8-23); C Reactive Protein 62.3 mg/L (0.0-4.9); Calcium 8.9 mg/dL (8.5-10.5); Chloride 86 mmol/L (98-107); Globulin 3.1 g/dL (1.3-4.6); Glomerular Filtration Rate 98.8 mL/min (90-130); Glucose 118 mg/dL (65-115); Magnesium 1.2 mg/dL (1.7-2.3); NT Pro B Type Natriuretic Pept 5780 pg/mL (0-125); Osmolality Calculated 290 mOsm/kg (285-295); Sodium 138 mmol/L (136-145); Total Bilirubin 0.6 mg/dL (0.15-1.2); Total Protein 6.1 g/dL (6.6-8.7)
[2022-02-20] MEDS: ipratropium-albuterol 3 mL Neb INHALATION (16:57)
[2022-02-20 16:58] VITALS: PULSE 83; RESP 20; O2SAT 95
[2022-02-20 17:03] LABS: Carbon Dioxide 41 mmol/L (22-29)
[2022-02-20] MEDS: ALPRAZolam 0.5 mg Tablet PO (17:19)
[2022-02-20 17:21] VITALS: BP 147/91; PULSE 101; RESP 16; O2SAT 91
[2022-02-20 18:31] VITALS: BP 147/91; PULSE 95; RESP 16; O2SAT 93
[2022-02-20 19:28] LABS: Adenovirus Not Detected (NOT DETECT); Chlamydia Pneumoniae Not Detected (NOT DETECT); Coronavirus 229E,HKU1,NL63,OC4 Not Detected (NOT DETECT); Human Metapneumovirus Not Detected (NOT DETECT); Human Rhinovirus/Enterovirus Detected (NOT DETECT); Influenza A Not Detected (NOT DETECT); Influenza A H1 Not Detected (NOT DETECT); Influenza A H1-2009 Not Detected (NOT DETECT); Influenza A H3 Not Detected (NOT DETECT); Influenza B Not Detected (NOT DETECT); Mycoplasma Pneumoniae Not Detected (NOT DETECT); Parainfluenza Virus Type 1 Not Detected (NOT DETECT); Parainfluenza Virus Type 2 Not Detected (NOT DETECT); Parainfluenza Virus Type 3 Not Detected (NOT DETECT); Parainfluenza Virus Type 4 Not Detected (NOT DETECT); Respiratory Syncytial Virus A Not Detected (NOT DETECT); Respiratory Syncytial Virus B Not Detected (NOT DETECT); SARS-COV-2 Not Detected (NOT DETECT)
[2022-02-20] MEDS: potassium chloride ER 20 mEq Tablet 40 MEQ PO (19:50)
[2022-02-20 20:41] LABS: Human Metapneumovirus Not Detected (NOT DETECT); Human Rhinovirus/Enterovirus Detected (NOT DETECT); Results from Genmark
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
[2022-02-20 21:24] VITALS: BP 164/68; PULSE 75; RESP 18; TEMP 36.6; O2SAT 96
[2022-02-20] MEDS: cefTRIAXone 1,000 MG in sodium chloride 0.9% (plus) 50 ML 100 MG IV (22:15)
[2022-02-20 22:16] VITALS: O2SAT 94
[2022-02-20] MEDS: HYDROcodone-acetaminophen 7.5-325 mg Tablet 1 TAB PO (22:24)
[2022-02-20] MEDS: heparin 5,000 unit/mL INJ 1 mL 5000 UNIT SUBCUT (22:24)
[2022-02-20] MEDS: magnesium sulfate premix 2 GM/50 ML PIGGYBACK IV (22:39)
[2022-02-21] VITALS (13 sets, daily range): BP systolic 110–138; BP diastolic 60–70; PULSE 71–99; RESP 15–20; TEMP 36.5–37; O2SAT 92–95
[2022-02-21] MEDS: ipratropium-albuterol 3 mL Neb INHALATION ×4 (02:09→19:58)
[2022-02-21] MEDS: HYDROcodone-acetaminophen 7.5-325 mg Tablet 1 TAB PO ×4 (04:48→23:15)
[2022-02-21 04:56] LABS: Basophils % 0.2 %; Hematocrit 41.6 % (37.0-47.0); Hemoglobin 13.5 g/dL (11.5-15.3); Lymphocytes # 0.6 10^3/uL (0.8-4.8); Lymphocytes % 7.3 %; Mean Corpuscular HGB Conc 32.5 g/dL (30.0-36.0); Mean Corpuscular Hemoglobin 29.8 pg (28.0-34.0); Mean Corpuscular Volume 91.8 fl (81-99); Mean Platelet Volume 12.3 fL (7.4-10.4); Monocytes # 0.1 10^3/uL (0.2-0.9); Neutrophils # 7.24 10^3/uL (1.8-7.7); Neutrophils % 90.1 %; Nucleated Red Blood Cells % 0 %; Platelet Count 226 10^3/cmm (130-400); Red Blood Count 4.53 10^6/uL (4.1-5.3); Red Cell Distribution Width 13.5 % (12.1-15.1)
[2022-02-21 05:23] LABS: Blood Urea Nitrogen 24 mg/dL (8-23); Calcium 8.7 mg/dL (8.5-10.5); Chloride 87 mmol/L (98-107); Glomerular Filtration Rate 98.8 mL/min (90-130); Glucose 165 mg/dL (65-115); Osmolality Calculated 298 mOsm/kg (285-295); Sodium 140 mmol/L (136-145)
[2022-02-21 05:24] LABS: Anion Gap 14.4 (5-19); Potassium 3.4 mmol/L (3.5-5.1)
[2022-02-21 05:26] LABS: Carbon Dioxide 42 mmol/L (22-29)
[2022-02-21] MEDS: pantoprazole DR 40 mg Tablet PO (08:29)
[2022-02-21] MEDS: heparin 5,000 unit/mL INJ 1 mL 5000 UNIT SUBCUT (08:29)
[2022-02-21] MEDS: budesonide 0.5 mg/2 mL Neb 0.25 MG INHALATION ×2 (08:56→19:57)
[2022-02-21] MEDS: ALPRAZolam 0.5 mg Tablet 0.25 MG PO ×2 (09:25→21:03)
[2022-02-21] MEDS: potassium chloride ER 20 mEq Tablet 40 MEQ PO (09:26)
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
[2022-02-21] MEDS: pregabalin 100 mg Capsule 200 MG PO (17:50)
--- NOTE | 2022-02-21 20:41 | PC.NURSE ---
Called and spoke with egarding patients home dose of Xanax, patient takes 0.5mg TID at home but is only ordered 0.25mg TID here. wants this addressed by the day team. Patient is requesting a sleeping pill but has no order, has trazadone on home medication list. ordered for 50mg Trazadone for sleep.
[2022-02-21] MEDS: cefTRIAXone 1,000 MG in sodium chloride 0.9% (plus) 50 ML 100 MG IV (21:03)
[2022-02-22] VITALS (14 sets, daily range): BP systolic 119–144; BP diastolic 63–84; PULSE 72–98; RESP 16–18; TEMP 36.7–37.3; O2SAT 93–98
[2022-02-22] MEDS: ipratropium-albuterol 3 mL Neb INHALATION ×4 (02:21→19:29)
[2022-02-22] MEDS: ALPRAZolam 0.5 mg Tablet 0.25 MG PO ×4 (02:49→23:17)
[2022-02-22] MEDS: HYDROcodone-acetaminophen 7.5-325 mg Tablet 1 TAB PO ×4 (05:03→23:17)
[2022-02-22 05:10] LABS: Basophils % 0.1 %; Hematocrit 38.5 % (37.0-47.0); Hemoglobin 12.5 g/dL (11.5-15.3); Lymphocytes # 0.5 10^3/uL (0.8-4.8); Lymphocytes % 5.3 %; Mean Corpuscular HGB Conc 32.5 g/dL (30.0-36.0); Mean Corpuscular Hemoglobin 30.2 pg (28.0-34.0); Mean Platelet Volume 12.5 fL (7.4-10.4); Monocytes # 0.2 10^3/uL (0.2-0.9); Monocytes % 2.3 %; Neutrophils # 8.86 10^3/uL (1.8-7.7); Neutrophils % 90.9 %; Nucleated Red Blood Cells % 0 %; Platelet Count 215 10^3/cmm (130-400); Red Blood Count 4.14 10^6/uL (4.1-5.3); Red Cell Distribution Width 13.7 % (12.1-15.1); White Blood Count 9.8 10^3/uL (4.0-10.0)
[2022-02-22 05:28] LABS: Blood Urea Nitrogen 24 mg/dL (8-23); Calcium 8.6 mg/dL (8.5-10.5); Chloride 90 mmol/L (98-107); Glomerular Filtration Rate 98.8 mL/min (90-130); Glucose 170 mg/dL (65-115); Osmolality Calculated 294 mOsm/kg (285-295); Sodium 138 mmol/L (136-145)
[2022-02-22 05:41] LABS: Anion Gap 10.6 (5-19); Carbon Dioxide 41 mmol/L (22-29); Potassium 3.6 mmol/L (3.5-5.1)
[2022-02-22] MEDS: budesonide 0.5 mg/2 mL Neb 0.25 MG INHALATION ×2 (08:37→19:29)
[2022-02-22] MEDS: pregabalin 100 mg Capsule 200 MG PO ×2 (09:40→17:59)
[2022-02-22] MEDS: pantoprazole DR 40 mg Tablet PO (09:40)
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
[2022-02-22 11:22] LABS: Magnesium 2.1 mg/dL (1.7-2.3)
[2022-02-22] MEDS: enoxaparin 40 mg/0.4 mL Syringe SUBCUT (11:31)
[2022-02-22] MEDS: FUROsemide 10 mg/mL SDV 2mL 20 MG IVP (11:31)
[2022-02-22] MEDS: cefTRIAXone 1,000 MG in sodium chloride 0.9% (plus) 50 ML 100 MG IV (21:11)
[2022-02-23] VITALS (10 sets, daily range): BP systolic 118–162; BP diastolic 57–90; PULSE 69–95; RESP 16–20; TEMP 36.6–36.9; O2SAT 92–98
[2022-02-23] MEDS: ipratropium-albuterol 3 mL Neb INHALATION ×4 (01:57→20:07)
[2022-02-23 05:16] LABS: Basophils % 0.2 %; Hematocrit 37.9 % (37.0-47.0); Hemoglobin 12.2 g/dL (11.5-15.3); Lymphocytes # 0.5 10^3/uL (0.8-4.8); Lymphocytes % 4.5 %; Mean Corpuscular HGB Conc 32.2 g/dL (30.0-36.0); Mean Corpuscular Hemoglobin 30.3 pg (28.0-34.0); Monocytes # 0.3 10^3/uL (0.2-0.9); Monocytes % 2.4 %; Neutrophils # 10.47 10^3/uL (1.8-7.7); Neutrophils % 91.6 %; Nucleated Red Blood Cells % 0 %; Platelet Count 204 10^3/cmm (130-400); Red Blood Count 4.03 10^6/uL (4.1-5.3); Red Cell Distribution Width 13.9 % (12.1-15.1); White Blood Count 11.4 10^3/uL (4.0-10.0)
[2022-02-23 05:29] LABS: Anion Gap 10.3 (5-19); Blood Urea Nitrogen 26 mg/dL (8-23); Calcium 8.7 mg/dL (8.5-10.5); Chloride 90 mmol/L (98-107); Glomerular Filtration Rate 82.7 mL/min (90-130); Glucose 176 mg/dL (65-115); Osmolality Calculated 297 mOsm/kg (285-295); Potassium 3.3 mmol/L (3.5-5.1); Sodium 139 mmol/L (136-145)
[2022-02-23 06:12] LABS: Carbon Dioxide 42 mmol/L (22-29)
[2022-02-23] MEDS: ALPRAZolam 0.5 mg Tablet 0.25 MG PO ×3 (07:33→21:34)
[2022-02-23] MEDS: HYDROcodone-acetaminophen 7.5-325 mg Tablet 1 TAB PO ×3 (07:34→19:22)
[2022-02-23] MEDS: pregabalin 100 mg Capsule 200 MG PO ×2 (08:43→17:21)
[2022-02-23] MEDS: pantoprazole DR 40 mg Tablet PO (08:43)
[2022-02-23] MEDS: budesonide 0.5 mg/2 mL Neb 0.25 MG INHALATION ×2 (08:48→20:06)
[2022-02-23] MEDS: potassium chloride ER 20 mEq Tablet 40 MEQ PO (08:49)
--- NOTE | 2022-02-23 10:24 | PC.CHAP ---
Pastoral Care Encounter/Spiritual Assessment Type of Contact [] Declined freelance patternmaker visit [] Patient/Family/Request visit [] Outpatient visit [] Follow-up visit [] Physician referral [] Code/Alert [x] Routine visit [] Staff referral [] Actively dying [] Patient sleeping [] Family support [] [] Out of room [] Palliative care [] [] Receiving care in room [] Pre-surgical visit [] Trauma [] Long length of stay [] ICU visit [] Other: Relational/Emotional Strength [x] Patient feels connected with others/family/visitors/staff [] Distress [] Loneliness/isolation [] Abandonment Spirituality of Patient [x] Person of Darlene [] Attends Baptism of their Darlene [] Believes in Prayer [] Reads Bible or Nondenominational materials [] There are Spiritual issues to be addressed Knitting Machine Operator Helper Interventions [x] Prayer [] Active listening [] Non-anxious presence [] Spiritual/emotional support [] Crisis/trauma care [] Spiritual counseling [] Bereavement support [] Provided bereavement packet [] Provided Bible/devotional materials [] Provided toy/stuffed animal, coloring book to patient or family member [] Provided Communion [] Anointing/[place] [] Salvation [x] Completed spiritual assessment [] Other: Impact on Illness or Injury [] Angry [] Fearful [] Anxious [] Often cries [] Exhaustion [] Unable to work [] Unable to attend sikh [] Unable to walk/stand [] Unable to read [] Unable to drive [] Unable to eat/drink [] Unable to sleep [] Unable to be with family [] Patient intubated [] Other: Summary Time spent with patient 5 min
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
[2022-02-23] MEDS: enoxaparin 40 mg/0.4 mL Syringe SUBCUT (12:55)
[2022-02-23] MEDS: cefTRIAXone 1,000 MG in sodium chloride 0.9% (plus) 50 ML 100 MG IV (21:34)
[2022-02-24] VITALS (12 sets, daily range): BP systolic 108–155; BP diastolic 51–76; PULSE 68–83; RESP 13–18; TEMP 36.6–36.8; O2SAT 93–98
[2022-02-24] MEDS: HYDROcodone-acetaminophen 7.5-325 mg Tablet 1 TAB PO ×4 (00:50→18:13)
[2022-02-24] MEDS: ipratropium-albuterol 3 mL Neb INHALATION ×4 (01:12→20:45)
[2022-02-24 05:36] LABS: Basophils % 0.1 %; Eosinophils % 0.2 %; Hematocrit 37.4 % (37.0-47.0); Hemoglobin 11.8 g/dL (11.5-15.3); Lymphocytes # 1.6 10^3/uL (0.8-4.8); Lymphocytes % 18.5 %; Mean Corpuscular HGB Conc 31.6 g/dL (30.0-36.0); Mean Corpuscular Hemoglobin 30.1 pg (28.0-34.0); Mean Corpuscular Volume 95.4 fl (81-99); Mean Platelet Volume 12.7 fL (7.4-10.4); Monocytes # 0.7 10^3/uL (0.2-0.9); Monocytes % 8.8 %; Neutrophils # 5.95 10^3/uL (1.8-7.7); Neutrophils % 70.4 %; Nucleated Red Blood Cells % 0 %; Platelet Count 169 10^3/cmm (130-400); Red Blood Count 3.92 10^6/uL (4.1-5.3); Red Cell Distribution Width 14.1 % (12.1-15.1); White Blood Count 8.5 10^3/uL (4.0-10.0)
[2022-02-24] MEDS: ALPRAZolam 0.5 mg Tablet 0.25 MG PO ×3 (05:45→18:13)
[2022-02-24 05:53] LABS: Anion Gap 9.4 (5-19); Blood Urea Nitrogen 26 mg/dL (8-23); Calcium 8.5 mg/dL (8.5-10.5); Chloride 92 mmol/L (98-107); Glomerular Filtration Rate 98.8 mL/min (90-130); Glucose 102 mg/dL (65-115); Osmolality Calculated 293 mOsm/kg (285-295); Potassium 3.4 mmol/L (3.5-5.1); Sodium 139 mmol/L (136-145)
--- NOTE | 2022-02-24 06:01 | PC.NURSE ---
Spoke with regarding patient with minimal output, 100ml over the entire shift. Most recent bladder scan revealed 347ml in bladder no urge to void. No new orders, continue to monitor for now.
[2022-02-24 06:08] LABS: Carbon Dioxide 41 mmol/L (22-29)
[2022-02-24] MEDS: pregabalin 100 mg Capsule 200 MG PO ×2 (09:16→18:14)
[2022-02-24] MEDS: FUROsemide 10 mg/mL SDV 2mL 20 MG IVP (09:17)
[2022-02-24] MEDS: pantoprazole DR 40 mg Tablet PO (09:17)
[2022-02-24] MEDS: predniSONE 20 mg Tablet 40 MG PO (09:17)
[2022-02-24] MEDS: potassium chloride ER 20 mEq Tablet 40 MEQ PO (09:29)
[2022-02-24] MEDS: budesonide 0.5 mg/2 mL Neb 0.25 MG INHALATION ×2 (10:10→20:45)
[2022-02-24] MEDS: enoxaparin 40 mg/0.4 mL Syringe SUBCUT (11:52)
--- NOTE | 2022-02-24 12:14 | PC.SOCIAL ---
Pg 2 IMM Explained to pt Pg 2 IMM. No questions voiced. Provided pt a copy. Initialed, dated, & timed a copy & placed in chart.
[2022-02-24] MEDS: cefTRIAXone 1,000 MG in sodium chloride 0.9% (plus) 50 ML 100 MG IV (21:12)
[2022-02-25] VITALS (7 sets, daily range): BP systolic 134–138; BP diastolic 70–75; PULSE 73–90; RESP 14–18; TEMP 36.9–37.2; O2SAT 87–98
[2022-02-25 03:01] LABS: Basophils % 0.2 %; Eosinophils % 0.2 %; Hematocrit 38.4 % (37.0-47.0); Lymphocytes # 1.5 10^3/uL (0.8-4.8); Lymphocytes % 13.7 %; Mean Corpuscular HGB Conc 31.3 g/dL (30.0-36.0); Mean Corpuscular Hemoglobin 29.6 pg (28.0-34.0); Mean Corpuscular Volume 94.6 fl (81-99); Mean Platelet Volume 12.7 fL (7.4-10.4); Monocytes # 0.8 10^3/uL (0.2-0.9); Monocytes % 7.7 %; Neutrophils # 8.24 10^3/uL (1.8-7.7); Neutrophils % 75.9 %; Nucleated Red Blood Cells % 0 %; Platelet Count 175 10^3/cmm (130-400); Red Blood Count 4.06 10^6/uL (4.1-5.3); White Blood Count 10.9 10^3/uL (4.0-10.0)
[2022-02-25] MEDS: ipratropium-albuterol 3 mL Neb INHALATION ×2 (03:05→08:23)
[2022-02-25] MEDS: HYDROcodone-acetaminophen 7.5-325 mg Tablet 1 TAB PO ×2 (03:21→09:32)
[2022-02-25 03:24] LABS: Anion Gap 9.7 (5-19); Glomerular Filtration Rate 98.8 mL/min (90-130); Osmolality Calculated 294 mOsm/kg (285-295); Potassium 3.7 mmol/L (3.5-5.1); Sodium 139 mmol/L (136-145)
[2022-02-25 03:50] LABS: Blood Urea Nitrogen 26 mg/dL (8-23); Calcium 8.3 mg/dL (8.5-10.5); Chloride 92 mmol/L (98-107); Glucose 118 mg/dL (65-115)
[2022-02-25 06:06] LABS: Carbon Dioxide 41 mmol/L (22-29)
[2022-02-25] MEDS: budesonide 0.5 mg/2 mL Neb 0.25 MG INHALATION (08:23)
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
[2022-02-25] MEDS: pantoprazole DR 40 mg Tablet PO (09:32)
[2022-02-25] MEDS: pregabalin 100 mg Capsule 200 MG PO (09:32)
[2022-02-25] MEDS: predniSONE 20 mg Tablet 40 MG PO (09:32)
[2022-02-25 12:14] LABS: SARS Covid-2 Antigen negative (Negative)
[2022-02-25] MEDS: ALPRAZolam 0.5 mg Tablet 0.25 MG PO (12:21)
== END 2022-02-25 14:34 | disposition home or self-care (01) | DRG 190 ==
LOC: ER 18:20 → MEDSURG 20:37
PROVIDERS: Student in an Organized Health Care Education/Training Program; Admitting Provider Internal Medicine; Emergency Provider Emergency Medicine; PCP Family Medicine; Visit Provider Family Medicine
DX: J44.1 Chronic obstructive pulmonary disease with (acute) exacerbation (principal); I50.33 Acute on chronic diastolic (congestive) heart failure; B34.8 Other viral infections of unspecified site; E83.42 Hypomagnesemia; E87.6 Hypokalemia; Z99.81 Dependence on supplemental oxygen; G89.29 Other chronic pain; M54.9 Dorsalgia, unspecified; Z63.79 Other stressful life events affecting family and household; F41.9 Anxiety disorder, unspecified; F32.A Depression, unspecified; Z79.891 Long term (current) use of opiate analgesic; B96.89 Other specified bacterial agents as the cause of diseases classified elsewhere; I11.0 Hypertensive heart disease with heart failure
CPT/HCPCS: 36415; 71045; 80048; 80053; 83735; 83880; 85025; 86140; 87070; 87077; 87186; 87205; 87426; 87635; 87801; 94640; 94664; 94760; 96372; 96374; 97110; 97116; 97161; 97166; 97530; 99285; G0378; J0696; J1644; J1650; J1940; J2920; J2930; J3475; J7512; J7626

== ENCOUNTER 2022-03-08 05:48 | Inpatient (IN) | payer MEDICARE, MEDICAID, SELFPAY ==
[2022-03-08] VITALS (14 sets, daily range): BP systolic 92–116; BP diastolic 57–68; PULSE 79–88; RESP 16–22; TEMP 36.6–36.8; O2SAT 3–95; BMI 30.7
--- NOTE | 2022-03-08 06:01 | XR_ITS ---
WS: [id number] Exam: XR chest 1V portable [id number] Date/Time of Exam: 03/08/2022 7:00 AM Reason For Exam: dyspnea/cough Comparison 02/20/2022. There is infiltrate in the left lower lobe suggesting pneumonia. The lungs are fully inflated. Cardio mediastinal silhouette is unremarkable. Slightly increased pulmonary vascularity. No pleural effusion . Bony structures are intact. Old left rib fracture noted. Hardware noted in the right clavicle. Apolonia toring leads superimpose the chest. XR/XR chest 1V portable [id number] IMPRESSION: 1. Left lower lobe infiltrate suggesting pneumonia.
--- NOTE | 2022-03-08 06:02 | ECG_ITS ---
[facility] Test Date: 2022-03-08 Pat Name: Sara Del Real Department: Room: Gender: Female Manager Scientific: : 1950 Requested By: Irving Rascon Order Number: [id number] Camila MD: Lindsay Allen M.D. Measurements Intervals [place] Rate: 86 P: 76 AL: 183 QRS: -42 QRSD: 94 T: 61 QT: 391 QTc: 468 Interpretive Statements SINUS RHYTHM WITH OCCASIONAL SUPRAVENTRICULAR PREMATURE COMPLEXES LEFT AXIS DEVIATION [QRS AXIS < -30] No previous ECG available for comparison Electronically Signed On 03-09-2022 7:02:56 CUSTOMER SERVICES MANAGER by Lindsay Allen M.D. [id number]
--- NOTE | 2022-03-08 06:03 | CTR_ITS ---
PROCEDURE INFORMATION: Exam: CT Head Without Contrast Exam date and time: 03/08/2022 6:41 AM Age: 72 years old Clinical indication: Altered mental status/memory loss; Additional info: AMS TECHNIQUE: Imaging protocol: Computed tomography of the head without contrast. Radiation optimization: All CT scans at this facility use at least one of these dose optimization techniques: automated exposure control; mA and/or kV adjustment per patient size (includes targeted exams where dose is matched to clinical indication); or iterative reconstruction. COMPARISON: CT head wo con* [id number] 01/13/2020 2:27 PM RADIATION DOSE METRICS: Total DLP (mGy-cm): 1134.97 FINDINGS: Brain: No intracranial hemorrhage, edema or other acute abnormality. There is decreased white matter density which is consistent with chronic small vessel white matter ischemia. No mass effect or midline shift. Cerebral ventricles: No ventriculomegaly. Paranasal sinuses: Visualized sinuses are unremarkable. No fluid levels. Mastoid air cells: Visualized mastoid air cells are well aerated. Bones/joints: Unremarkable. No acute fracture. Soft tissues: Unremarkable. CT/CT head wo con* [id number] IMPRESSION: 1. No acute intracranial abnormality. 2. Chronic white matter ischemic changes.
--- NOTE | 2022-03-08 06:03 | ED_ITS ---
HPI - Altered Mental Status General: Chief Complaint: Altered Mental Status Stated Complaint: not responding like normal Time Seen by Provider: 03/08/22 05:49 Source: patient Mode of arrival: ambulatory [facility] ED PFSH: Medical History CHF (congestive heart failure) Chronic back pain COPD (chronic obstructive pulmonary disease) Depression Surgical History History of cholecystectomy Family History Other CAD (coronary artery disease) Cancer Social History Smoking and tobacco status: current every day smoker Lives independently: Yes Household members: other Details: Son Marital status: Legally Course Vital Signs: Vital signs: Vital Signs Temperature 97.9 F 03/08/22 05:49 Pulse Rate 88 03/08/22 05:49 Respiratory Rate 18 03/08/22 05:49 Blood Pressure 109/60 03/08/22 05:49 Pulse Oximetry 83 L 03/08/22 05:49 Oxygen Delivery Me thod 03/08/22 05:49 MDM - Altered Mental Status Lab Data : 03/08/22 06:07 03/08/22 06:07 Laboratory Results WBC 14.0 10^3/uL (4.0-10.0) H 03/08/22 06:07 RBC 3.82 10^6/uL (4.1-5.3) L 03/08/22 06:07 Hgb 11.5 g/dL (11.5-15.3) 03/08/22 06:07 Hct 37.7 % (37.0-47.0) 03/08/22 06:07 MCV 98.7 fl (81-99) 03/08/22 06:07 MCH 30.1 pg (28.0-34.0) 03/08/22 06:07 MCHC 30.5 g/dL (30.0-36.0) 03/08/22 06:07 RDW 14.7 % (12.1-15.1) 03/08/22 06:07 Plt Count 128 10^3/cmm (130-400) L 03/08/22 06:07 MPV 12.9 fL (7.4-10.4) H 03/08/22 06:07 Neut % (Auto) 85.6 % 03/08/22 06:07 Lymph % (Auto) 8.4 % 03/08/22 06:07 Hitchcock % (Auto) 4.9 % 03/08/22 06:07 Eos % (Auto) 0.1 % 03/08/22 06:07 Baso % (Auto) 0.3 % 03/08/22 06:07 Neut # (Auto) 11.95 10^3/uL (1.8-7.7) H 03/08/22 06:07 Lymph # (Auto) 1.2 10^3/uL (0.8-4.8) 03/08/22 06:07 Hitchcock # (Auto) 0.7 10^3/uL (0.2-0.9) 03/08/22 06:07 Eos # (Auto) 0.0 10^3/uL (0.0-0.8) 03/08/22 06:07 Baso # (Auto) 0.0 10^3/uL (0.0-0.1) 03/08/22 06:07 Nucleated RBC % (auto) 0 % 03/08/22 06:07 Nucleated RBCs # 0.0 /100WBC 03/08/22 06:07 Specimen Type Arterial 03/08/22 06:17 Sample Site Brachial, right 03/08/22 06:17 ABG pH 7.39 (7.35-7.45) 03/08/22 06:17 ABG pCO2 52.7 mmHg (35-45) H 03/08/22 06:17 ABG pO2 64.1 mmHg (80.0-100.0) L 03/08/22 06:17 ABG HCO3 31.7 mmol/L (22-26) H 03/08/22 06:17 ABG O2 Saturation 94.0 03/08/22 06:17 ABG Base Excess 5.5 mmol/L (-2.0-2.0) H 03/08/22 06:17 Moise Test N/a 03/08/22 06:17 A-a O2 Gradient 24.4 mmHg (5-10) H 03/08/22 06:17 Hematocrit 35.3 % (37-47) L 03/08/22 06:17 Hgb O2 Saturation 91.8 % (95-100) L 03/08/22 06:17 Carboxyhemoglobin 1.6 %THgb (0.4-20.1) 03/08/22 06:17 Methemoglobin 0.7 % (0.4-1.5) 03/08/22 06:17 Total Hemoglobin 11.5 g/dL (12-16) L 03/08/22 06:17 Sodium 138.0 mmol/L (131-143) 03/08/22 06:17 Potassium 4.3 mmol/L (3.5-5.0) 03/08/22 06:17 Glucose 120.0 mg/dL (70-115) H 03/08/22 06:17 Ionized Calcium 1.2 mmol/L (1.1-1.4) 03/08/22 06:17 O2 Delivery Device Nc 03/08/22 06:17 O2 Liters/Min 6.0 % 03/08/22 06:17 FiO2 44.0 % 03/08/22 06:17 Director Of Convention Services ID Amh 03/08/22 06:17 Sodium 138 mmol/L (136-145) 03/08/22 06:07 Potassium 5.2 mmol/L (3.5-5.1) H 03/08/22 06:07 Chloride 99 mmol/L (98-107) 03/08/22 06:07 Carbon Dioxide 30 mmol/L (22-29) H 03/08/22 06:07 Anion Gap 14.2 (5-19) 03/08/22 06:07 BUN 23 mg/dL (8-23) 03/08/22 06:07 Creatinine 0.9 mg/dL (0.5-0.9) 03/08/22 06:07 GFR Calculation 61.9 mL/min (90-130) L 03/08/22 06:07 Glucose 118 mg/dL (65-115) H 03/08/22 06:07 Calculated Osmolality 291 mOsm/kg (285-295) 03/08/22 06:07 Lactic Acid 1.6 mmol/L (0.5-2.2) 03/08/22 06:07 Calcium 8.9 mg/dL (8.5-10.5) 03/08/22 06:07 Magnesium 1.4 mg/dL (1.7-2.3) L 03/08/22 06:07 Total Bilirubin 0.5 mg/dL (0.15-1.2) 03/08/22 06:07 AST 15 U/L (0-32) 03/08/22 06:07 ALT 11 U/L (0-33) 03/08/22 06:07 Alkaline Phosphatase 69 U/L (35-105) 03/08/22 06:07 Creatine Kinase 312 U/L (26-192) H 03/08/22 06:07 Troponin T Baseline 19 ng/L (0-10) H 03/08/22 06:07 Total Protein 5.8 g/dL (6.6-8.7) L 03/08/22 06:07 Albumin 2.9 g/dL (3.5-5.2) L 03/08/22 06:07 Globulin 2.9 g/dL (1.3-4.6) 03/08/22 06:07 Lipase 8 U/L (13-60) L 03/08/22 06:07 Urine Color Yellow (Yellow) 03/08/22 06:05 Urine Appearance Sl hazy (CLEAR) A 03/08/22 06:05 Urine pH 5 (5-7) 03/08/22 06:05 Ur Specific [place] 1.010 (1.005-1.030) 03/08/22 06:05 Urine Protein Neg (Negative) 03/08/22 06:05 Urine Glucose (UA) Norm (Normal) 03/08/22 06:05 Urine Ketones Negative (Negative) 03/08/22 06:05 Urine Blood Neg (Negative) 03/08/22 06:05 Urine Nitrate Positive (Negative) H 03/08/22 06:05 Urine Bilirubin Neg (Negative) 03/08/22 06:05 Urine Urobilinogen Norm mg/dL (Negative) 03/08/22 06:05 Ur Leukocyte Esterase 2+ (Negative) H 03/08/22 06:05 Urine RBC 0-4 /hpf (0-2) H 03/08/22 06:05 Urine WBC 25-40 /hpf (0-5) H 03/08/22 06:05 Ur Squamous Epith Cells 0-4 /hpf (0-5) H 03/08/22 06:05 Amorphous Sediment Not Reportable 03/08/22 06:05 Urine Bacteria 2+ /hpf (NONE) H 03/08/22 06:05 Urine Mucus Trace /hpf 03/08/22 06:05 Critical Care Time Critical Care Time: Critical Care Time: Yes Attestation: The high probability of a clinically significant, sudden or life threatening deterioration of the patient's [Sepsis, cardiovascular, respiratory] system(s) required my full and direct attention, intervention and personal management. The critical care time is as shown. This time is in addition to time spent performing any reported procedures but includes the following: [x] Data and vital sign review and interpretation [x] Patient assessment, examination and intervention [x] Documentation [x] Medication orders and management Discharge Plan Discharge Condition: Stable Prescriptions: No Action (DME) Front wheel walker See Rx Instructions .Route .MEDSUPPLY Qty: 1 0RF Rx Instructions: As directed baclofen 20 mg tablet 20 mg PO TID lisinopril 10 mg tablet 10 mg PO DAILY albuterol sulfate [Ventolin HFA] 90 mcg/actuation HFA aerosol inhaler 2 puff INHALATION Q4H PRN (Reason: Shortness Of Breath) escitalopram oxalate 20 mg tablet 20 mg PO BID Rx Instructions: pt states she takes 20mg po qam rx filled on 11/26/2019 pregabalin 200 mg capsule 200 mg PO TID naloxone [Narcan] 4 mg/actuation spray,non-aerosol 1 spray intranasal . DIRECTED hydrocodone-acetaminophen 7.5-325 mg tablet 1 tab PO Q6H PRN (Reason: pain) Qty: 20 0RF Lasix 40 mg Tablet 20 mg PO DAILY potassium chloride 10 mEq Capsule, Extended Release 10 meq PO DAILY albuterol sulfate 2.5 mg /3 mL (0.083 %) solution for nebulization 2.5 mg inhalation Q6H PRN (Reason: Shortness Of Breath) atorvastatin 10 mg Tablet 10 mg PO DAILY alprazolam 0.5 mg tablet 0.5 mg PO TID PRN (Reason: Anxiety) trazodone 100 mg Tablet 50 - 100 mg PO BEDTIME Advair HFA 230-21 mcg/actuation HFA aerosol inhaler 2 puff INHALATION Q12H Diflucan 150 mg tablet 150 mg PO DAILY Qty: 1 0RF Rx Instructions: administer on day 1 of therapy Referrals: Carroll Johnson [Primary Care Provider] - Coding Level of Care Code ED Collection Analyst for [facility]
[2022-03-08 06:23] LABS: Basophils % 0.3 %; Eosinophils % 0.1 %; Hematocrit 37.7 % (37.0-47.0); Hemoglobin 11.5 g/dL (11.5-15.3); Lymphocytes # 1.2 10^3/uL (0.8-4.8); Lymphocytes % 8.4 %; Mean Corpuscular HGB Conc 30.5 g/dL (30.0-36.0); Mean Corpuscular Hemoglobin 30.1 pg (28.0-34.0); Mean Corpuscular Volume 98.7 fl (81-99); Mean Platelet Volume 12.9 fL (7.4-10.4); Monocytes # 0.7 10^3/uL (0.2-0.9); Monocytes % 4.9 %; Neutrophils # 11.95 10^3/uL (1.8-7.7); Neutrophils % 85.6 %; Nucleated Red Blood Cells % 0 %; Platelet Count 128 10^3/cmm (130-400); Red Blood Count 3.82 10^6/uL (4.1-5.3); Red Cell Distribution Width 14.7 % (12.1-15.1)
[2022-03-08 06:29] LABS: ABG PCO2 52.7 mmHg (35-45); ABG PH Result 7.39 (7.35-7.45); Alveolar-Arterial Oxygen Gradi 24.4 mmHg (5-10); Arterial Blood Gas Hematocrit 35.3 % (37-47); Base Excess ABG 5.5 mmol/L (-2.0-2.0); Blood Gas Operator Identificat AMH; Blood Gas Sample Site Brachial, right; Blood Gas Sample Type Arterial; Carboxyhemoglobin 1.6 %THgb (0.4-20.1); HCO3 ABG 31.7 mmol/L (22-26); HGB O2 Sat 91.8 % (95-100); Ionized Calcium Level - ABG 1.2 mmol/L (1.1-1.4); Methemoglobin 0.7 % (0.4-1.5); Oxygen Device NC; PO2 ABG 64.1 mmHg (80.0-100.0); Potassium Level - ABG 4.3 mmol/L (3.5-5.0); Total Hemoglobin 11.5 g/dL (12-16)
[2022-03-08 06:40] LABS: Alanine Aminotransferase 11 U/L (0-33); Albumin Level 2.9 g/dL (3.5-5.2); Alkaline Phosphatase 69 U/L (35-105); Anion Gap 14.2 (5-19); Aspartate Amino Transferase 15 U/L (0-32); Blood Urea Nitrogen 23 mg/dL (8-23); Calcium 8.9 mg/dL (8.5-10.5); Carbon Dioxide 30 mmol/L (22-29); Chloride 99 mmol/L (98-107); Creatine Phosphokinase 312 U/L (26-192); Globulin 2.9 g/dL (1.3-4.6); Glomerular Filtration Rate 61.9 mL/min (90-130); Glucose 118 mg/dL (65-115); Lactic Sepsis W/Reflex 1.6 mmol/L (0.5-2.2); Lipase 8 U/L (13-60); Magnesium 1.4 mg/dL (1.7-2.3); Osmolality Calculated 291 mOsm/kg (285-295); Potassium 5.2 mmol/L (3.5-5.1); Sodium 138 mmol/L (136-145); Total Bilirubin 0.5 mg/dL (0.15-1.2); Total Protein 5.8 g/dL (6.6-8.7); Troponin(5th) Baseline 19 ng/L (0-10)
[2022-03-08 06:47] LABS: Urine Color Yellow (Yellow)
[2022-03-08 06:48] LABS: Add Urine Microscopic? YES; Bilirubin Urine Neg (Negative); Blood Urine Neg (Negative); Glucose Urine UA Norm (Normal); Ketones Urine Negative (Negative); Leukocyte Esterase Urine 2+ (Negative); Nitrate Urine Positive (Negative); Protein Urine Neg (Negative); Urine Appearance SL Hazy (CLEAR); Urobilinogen Urine Norm (Negative); pH Urine 5 (5-7)
[2022-03-08 06:49] LABS: Bacteria Urine 2+ /hpf; Mucus Urine TRACE /hpf; RBC Urine 0-4 /hpf (0-2); Squamous Epithelial Cell Urine 0-4 /hpf (0-5); WBC Urine 25-40 /hpf (0-5)
[2022-03-08 06:50] LABS: Add Urine Culture? Yes
--- NOTE | 2022-03-08 06:58 | W.ED.GENADLT ---
HPI - General Adult General: Chief complaint: ER Hold Stated complaint: not responding like normal Time Seen by Provider: 03/08/22 05:49 Source: patient Mode of arrival: EMS History of Present Illness: 72-year-old female resident residential brought in with altered mental status fever and hypotension. On arrival here she is hypoxic that was on room air we found that she is normally on 3 L/min on room air she was 83%. She is awake she will answer some questions she is lethargic. Blood pressure around the 100 systolic range. Once oxygen was supplemented her sat remained stable on her usual 3 L/min. She denied chest or abdominal pain. She was recently hospitalized pneumonia sputum culture grew out Serratia marcescens. She will respond to verbal cues and answer questions. Answers are brief patient does better when answering of questions are simple. Onset (ago): unknown Severity: moderate Pain Consistency: constant Relieving factors: none Associated symptoms: Reports confusion, cough, dyspnea, fevers/chills, malaise, short of breath and weakness; Deny chest pain, diaphoresis, decreased appetite, headache(s), nausea, rash, palpitations, seizures or vomiting Treatments prior to arrival: none Review of Systems Const: Reports: fever(s), chills, fatigue and malaise; Denies: diaphoresis ENMT: Denies: throat pain, ear or mastoid pain, nasal discharge or nasal congestion Card: Denies: chest pain or palpitations Resp: Reports: dyspnea and non-productive cough GI: Denies: abdominal pain, nausea or vomiting : Denies: flank pain, difficulty voiding, dysuria, urinary frequency or urinary urgency Musc: Denies: back pain Skin/Breast: Denies: rash Neuro: Reports: confusion; Denies: headache(s) PFS ED PFSH: Medical History CHF (congestive heart failure) Chronic back pain COPD (chronic obstructive pulmonary disease) Depression Surgical History History of cholecystectomy Family History Other CAD (coronary artery disease) Cancer Social History Smoking and tobacco status: current every day smoker Lives independently: Yes Household members: other Details: Son Marital status: Legally Physical Exam Const: GENERAL APPEARANCE: cooperative and comfortable ORIENTATION/CONSCIOUSNESS: Yes awake HENMT: COMMON NORMALS: normocephalic, atraumatic, hearing grossly normal bilaterally, external ears normal, EAC's normal, TM's normal bilaterally, Normal nasal mucous membranes and turbinates present and moist oral mucous membranes HEAD & SCALP: normocephalic and atraumatic NOSE: Normal nasal mucous membranes and turbinates present EXTERNAL EAR: Yes external ears normal EXTERNAL AUDITORY CANAL: EAC's normal TYMPANIC MEMBRANE: TM's normal bilaterally MOUTH: moist mucous membranes abnormal (White patches consistent with Catalina) Eye: COMMON NORMALS: Equal, round and reactive pupils present, EOMs intact bilaterally, conjunctivae normal and no scleral icterus CONJUNCTIVA: Yes conjunctivae normal PUPIL: Yes Equal, round and reactive pupils present Resp: COMMON NORMALS: normal respiratory effort, No retractions, No use of accessory muscles and clear to auscultation bilaterally AUSCULTATION: clear to auscultation bilaterally Cardio: COMMON NORMALS: regular rate, regular rhythm and No murmurs present (Cardio) RATE: regular rate RHYTHM: regular rhythm GI: COMMON NORMALS: Soft to palpation and No hepatosplenomegaly present AUSCULTATION: Yes normoactive bowel sounds PALPATION: Yes Soft to palpation, No Tenderness to palpation present (GI), No Guarding due to palpation present (GI) and Yes No hepatosplenomegaly present Extremity: COMMON NORMALS: normal to inspection, capillary refill normal, no clubbing, cyanosis or edema, no calf tenderness and no pedal edema Skin: COMMON NORMALS: no rashes or lesions noted GENERAL SKIN EXAM: no rashes or lesions noted Course Vital Signs: Vital signs: Vital Signs Temperature 97.9 F 03/08/22 09:02 Pulse Rate 88 03/08/22 09:02 Respiratory Rate 18 03/08/22 09:02 Blood Pressure 109/60 03/08/22 09:02 Pulse Oximetry 83 L 03/08/22 09:02 Oxygen Delivery Me thod 03/08/22 07:08 [facility] - General Adult Medical Decision Making Altered mental status hypotension and hyperkalemia. IV fluids given. Given patient's altered mental status she will require admission. Patient started on Primaxin secondarily she has oral candidiasis discussed with hospitalist orders written. Medical Records I reviewed the patient's medical records. Lab Data I reviewed the patient's lab results. : 03/08/22 06:07 03/08/22 06:07 Radiology Impressions Chest X-Ray 03/08/22 06:01 IMPRESSION: 1. Left lower lobe infiltrate suggesting pneumonia. Head CT 03/08/22 06:03 IMPRESSION: 1. No acute intracranial abnormality. 2. Chronic white matter ischemic changes. Laboratory Results WBC 14.0 10^3/uL (4.0-10.0) H 03/08/22 06:07 RBC 3.82 10^6/uL (4.1-5.3) L 03/08/22 06:07 Hgb 11.5 g/dL (11.5-15.3) 03/08/22 06:07 Hct 37.7 % (37.0-47.0) 03/08/22 06:07 MCV 98.7 fl (81-99) 03/08/22 06:07 MCH 30.1 pg (28.0-34.0) 03/08/22 06:07 MCHC 30.5 g/dL (30.0-36.0) 03/08/22 06:07 RDW 14.7 % (12.1-15.1) 03/08/22 06:07 Plt Count 128 10^3/cmm (130-400) L 03/08/22 06:07 MPV 12.9 fL (7.4-10.4) H 03/08/22 06:07 Neut % (Auto) 85.6 % 03/08/22 06:07 Lymph % (Auto) 8.4 % 03/08/22 06:07 Barnwell % (Auto) 4.9 % 03/08/22 06:07 Eos % (Auto) 0.1 % 03/08/22 06:07 Baso % (Auto) 0.3 % 03/08/22 06:07 Neut # (Auto) 11.95 10^3/uL (1.8-7.7) H 03/08/22 06:07 Lymph # (Auto) 1.2 10^3/uL (0.8-4.8) 03/08/22 06:07 Barnwell # (Auto) 0.7 10^3/uL (0.2-0.9) 03/08/22 06:07 Eos # (Auto) 0.0 10^3/uL (0.0-0.8) 03/08/22 06:07 Baso # (Auto) 0.0 10^3/uL (0.0-0.1) 03/08/22 06:07 Nucleated RBC % (auto) 0 % 03/08/22 06:07 Nucleated RBCs # 0.0 /100WBC 03/08/22 06:07 Specimen Type Arterial 03/08/22 06:17 Sample Site Brachial, right 03/08/22 06:17 ABG pH 7.39 (7.35-7.45) 03/08/22 06:17 ABG pCO2 52.7 mmHg (35-45) H 03/08/22 06:17 ABG pO2 64.1 mmHg (80.0-100.0) L 03/08/22 06:17 ABG HCO3 31.7 mmol/L (22-26) H 03/08/22 06:17 ABG O2 Saturation 94.0 03/08/22 06:17 ABG Base Excess 5.5 mmol/L (-2.0-2.0) H 03/08/22 06:17 Moise Test N/a 03/08/22 06:17 A-a O2 Gradient 24.4 mmHg (5-10) H 03/08/22 06:17 Hematocrit 35.3 % (37-47) L 03/08/22 06:17 Hgb O2 Saturation 91.8 % (95-100) L 03/08/22 06:17 Carboxyhemoglobin 1.6 %THgb (0.4-20.1) 03/08/22 06:17 Methemoglobin 0.7 % (0.4-1.5) 03/08/22 06:17 Total Hemoglobin 11.5 g/dL (12-16) L 03/08/22 06:17 Sodium 138.0 mmol/L (131-143) 03/08/22 06:17 Potassium 4.3 mmol/L (3.5-5.0) 03/08/22 06:17 Glucose 120.0 mg/dL (70-115) H 03/08/22 06:17 Ionized Calcium 1.2 mmol/L (1.1-1.4) 03/08/22 06:17 O2 Delivery Device Nc 03/08/22 06:17 O2 Liters/Min 6.0 % 03/08/22 06:17 FiO2 44.0 % 03/08/22 06:17 [employer] Home [employer] Teacher ID Amh 03/08/22 06:17 Sodium 138 mmol/L (136-145) 03/08/22 06:07 Potassium 5.2 mmol/L (3.5-5.1) H 03/08/22 06:07 Chloride 99 mmol/L (98-107) 03/08/22 06:07 Carbon Dioxide 30 mmol/L (22-29) H 03/08/22 06:07 Anion Gap 14.2 (5-19) 03/08/22 06:07 BUN 23 mg/dL (8-23) 03/08/22 06:07 Creatinine 0.9 mg/dL (0.5-0.9) 03/08/22 06:07 GFR Calculation 61.9 mL/min (90-130) L 03/08/22 06:07 Glucose 118 mg/dL (65-115) H 03/08/22 06:07 Calculated Osmolality 291 mOsm/kg (285-295) 03/08/22 06:07 Lactic Acid 1.6 mmol/L (0.5-2.2) 03/08/22 06:07 Calcium 8.9 mg/dL (8.5-10.5) 03/08/22 06:07 Magnesium 1.4 mg/dL (1.7-2.3) L 03/08/22 06:07 Total Bilirubin 0.5 mg/dL (0.15-1.2) 03/08/22 06:07 AST 15 U/L (0-32) 03/08/22 06:07 ALT 11 U/L (0-33) 03/08/22 06:07 Alkaline Phosphatase 69 U/L (35-105) 03/08/22 06:07 Creatine Kinase 312 U/L (26-192) H 03/08/22 06:07 Troponin T Baseline 19 ng/L (0-10) H 03/08/22 06:07 Total Protein 5.8 g/dL (6.6-8.7) L 03/08/22 06:07 Albumin 2.9 g/dL (3.5-5.2) L 03/08/22 06:07 Globulin 2.9 g/dL (1.3-4.6) 03/08/22 06:07 Lipase 8 U/L (13-60) L 03/08/22 06:07 Urine Color Yellow (Yellow) 03/08/22 06:05 Urine Appearance Sl hazy (CLEAR) A 03/08/22 06:05 Urine pH 5 (5-7) 03/08/22 06:05 Ur Specific [place] 1.010 (1.005-1.030) 03/08/22 06:05 Urine Protein Neg (Negative) 03/08/22 06:05 Urine Glucose (UA) Norm (Normal) 03/08/22 06:05 Urine Ketones Negative (Negative) 03/08/22 06:05 Urine Blood Neg (Negative) 03/08/22 06:05 Urine Nitrate Positive (Negative) H 03/08/22 06:05 Urine Bilirubin Neg (Negative) 03/08/22 06:05 Urine Urobilinogen Norm mg/dL (Negative) 03/08/22 06:05 Ur Leukocyte Esterase 2+ (Negative) H 03/08/22 06:05 Urine RBC 0-4 /hpf (0-2) H 03/08/22 06:05 Urine WBC 25-40 /hpf (0-5) H 03/08/22 06:05 Ur Squamous Epith Cells 0-4 /hpf (0-5) H 03/08/22 06:05 Amorphous Sediment Not Reportable 03/08/22 06:05 Urine Bacteria 2+ /hpf (NONE) H 03/08/22 06:05 Urine Mucus Trace /hpf 03/08/22 06:05 Discharge Plan Discharge Patient Disposition: Admitted As Inpatient Admit Provider: Claus Hernandez Clinical Impression: Cystitis, Encephalopathy, Candidiasis of mouth, Acute hyperkalemia, COPD (chronic obstructive pulmonary disease) Condition: Stable Coding Level of Care Code ED Platform Material Handling Supervisor for Chg Fwd Exam Comprehensive
--- NOTE | 2022-03-08 08:02 | ECG_ITS ---
[facility] Test Date: 2022-03-08 Pat Name: Sara Del Real Department: Room: Gender: Female Marketing Assistant Manager: : 1950 Requested By: Irving Rascon Order Number: [id number] Camila MD: Lindsay Allen M.D. Measurements Intervals [place] Rate: 84 P: 85 MI: 187 QRS: -43 QRSD: 96 T: 64 QT: 405 QTc: 480 Interpretive Statements SINUS RHYTHM LEFT AXIS DEVIATION [QRS AXIS < -30] Compared to ECG 03/08/2022 06:08:11 No significant changes Electronically Signed On 03-09-2022 7:19:28 GUIDE VISITOR by Lindsay Allen M.D. [id number]
--- NOTE | 2022-03-08 08:17 | CT_ITS ---
WS: [id number] CT CHEST, ABDOMEN, AND PELVIS TECHNIQUE: Noncontrast CT of the chest, abdomen, and pelvis with coronal and sagittal reformatted wayne ges. CLINICAL INFORMATION: wheezing, ruq abdominal pain COMPARISON: None. DLP: 894.[address] scans at [facility] use at least one of these dose optimization techniques: automated e xposure control; mA and/or kV adjustment per patient size (includes targeted exams where dose is matc hed to clinical indication); or iterative reconstruction. CT CHEST: Moderate chronic emphysematous changes. Patchy infiltrates in the LEFT greater than RIGHT lower lobes with subpleural opacities. Tiny LEFT pleural effusion. Correlation for pneumonia. Mild bronchiectasi s in both lower lobes. Fibrosis in the lung apices. Aberrant RIGHT subclavian artery. Aortic calcification. Normal caliber t horacic aorta. Coronary calcification. No mediastinal or hilar lymphadenopathy. No axillary lymphaden opathy. Tiny esophageal hiatal hernia. Normal visualized thoracic spine. Well-circumscribed subendocardial li marsha involving the RIGHT atrium measuring 5.6 x 2.8 cm. This can be further evaluated with echocardio graphy. Compression of the RIGHT atrium. CT ABDOMEN AND PELVIS: Noncontrast liver is normal. Mild hepatomegaly. Normal noncontrast spleen. Adrenal glands are normal. No hydronephrosis. Pancreatic fatty atrophy. Normal caliber abdominal aorta. Mild aortic calcificati on. Beltre catheter. Sigmoid diverticulosis. Mild pancolonic constipation. No significant bowel distention. No abdominal o r pelvic lymphadenopathy. No inguinal lymphadenopathy. Slight anterolisthesis L4 on L5. Tiny fat-containing umbilical hernia. CT/[place] [id number] IMPRESSION: 1. Patchy infiltrates in both lower lobes LEFT greater than RIGHT with subpleu ral opacities. Correlation for pneumonia. Tiny LEFT pleural effusion. 2. 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 This can be further evaluated with echocardiography. Compressi on of the RIGHT atrium. 3. Aberrant RIGHT subclavian artery. 4. Mild pancolonic constipation. 5. No other suspicious findings in the abdomen or pelvis.
[2022-03-08] MEDS: sodium chloride 0.9% 1,000 ML 999 ML IV (08:40)
[2022-03-08] MEDS: magnesium sulfate premix 4 GM/100 ML PREMIX IV (09:39)
[2022-03-08 09:51] LABS: Troponin 5 2HR 19.51 ng/L (0-10)
[2022-03-08 09:52] LABS: Troponin 5 2HR Delta 0.51 ABS# (0-10)
[2022-03-08] MEDS: vancomycin 1,000 MG in sodium chloride 0.9% 250 ML 250 MG IV (09:55)
[2022-03-08] MEDS: nystatin 100,000 unit/mL UDC 5 mL 100000 UNIT PO ×4 (09:56→22:39)
[2022-03-08] MEDS: enoxaparin 40 mg/0.4 mL Syringe SUBCUT (09:57)
[2022-03-08] MEDS: pantoprazole 40 mg SDV IVP (10:03)
[2022-03-08 10:20] LABS: NT Pro B Type Natriuretic Pept 768 pg/mL (0-125); Procalcitonin 0.93 ng/mL (0-0.5); Thyroid Stimulating Hormone 1.14 uIU/mL (0.27-4.20)
[2022-03-08 10:31] LABS: C Reactive Protein 125.9 mg/L (0.0-4.9)
--- NOTE | 2022-03-08 11:10 | USCV_ITS ---
Sara eDl Real Age: 72 Gender: F : 1950 Exam Date: 03/08/2022 14:12 Ordering Phys: Claus Hernandez MD Technologist: Russell Shukla Exam Location: [facility] [place] Indication: ? chest mass BP: 125 / 72 HR: 76 Rhythm: Sinus Technical Quality: Adequate MEASUREMENTS (Male / Female) Normal Values 2D ECHO LV Diastolic Diameter PLAX 5.2 cm 4.2 - 5.9 / 3.9 - 5.3 cm LV Systolic Diameter PLAX 4.2 cm IVS Diastolic Thickness 0.8 cm 0.6 - 1.0 / 0.6 - 0.9 cm IVS Systolic Thickness 0.9 cm LVPW Diastolic Thickness 0.7 cm 0.6 - 1.0 / 0.6 - 0.9 cm LVPW Systolic Thickness 0.9 cm LVOT Diameter 2.1 cm LV Ejection Fraction 2D Teich 41.0 % LV Ejection Fraction MOD 2C 67.1 % LV Ejection Fraction 2C AL 68.2 % LA Diameter 2.2 cm Aorta at Sinotubular Diameter 2.1 cm IVC Diameter 1.1 cm M-MODE Aortic Annulus Diameter 2.6 cm LA Ao Ratio MM 1.1 MV E Point Septal Separation 0.5 cm DOPPLER AV Peak Velocity 184.0 cm/s LVOT Peak Velocity 121.0 cm/s AV Area Cont Eq vti 2.0 cm squared AV Area Cont Eq pk 2.2 cm squared MV Area PHT 3.6 cm squared Mitral E to A Ratio 0.9 MV E' Velocity 68.0 cm/s Mitral E to MV E' Ratio 10.7 Mitral E to LV E' Lateral Ratio 11.6 Mitral E to LV E' Septal Ratio 10.1 TR Peak Velocity 274.3 cm/s TR Peak Gradient 30.1 mmHg TV Peak E Velocity 67.0 cm/s Right Atrial Pressure 3.0 mmHg Pulmonary Artery Systolic Pressu 33.1 mmHg RV Acceleration Time 0.1 s FINDINGS Left Ventricle Right Ventricle Right Atrium Left Atrium Mitral Valve Aortic Valve Tricuspid Valve Pulmonic Valve Pericardium Aorta IVC CONCLUSIONS Only still images were obtained in this study. This study needs to be repeated. The ultrasound department was informed about this. Normal LV size and ejection fraction of 67%. Appears to have normal cardiac chamber sizes No significant pericardial effusion. Dr Lindsay Allen MD FACC (Electronically Signed) Final Date: 15 March 2022 18:31 S
--- NOTE | 2022-03-08 11:14 | P.HP_ITS ---
Providers/Chief Complaint Admitting Physician: Claus Hernandez MD Primary Care Provider: Carroll Johnson Chief Complaint: not responding like normal History of Present Illness Sara Del Real is a 72 year old female with a past medical history of COPD, on oxygen, CHF, hypertension depression, anxiety, chronic back pain on narcotics, who presents to [facility] from [facility] due to altered mental status, low oxygen, shortness of breath. Currently patient alert to person, not to place, not to time, she can answer some questions, but is confused. When asked her why she is in the hospital she cannot really provide an answer, she does report shortness of breath, she has no other pain complaints, no chest pain, she does tell me her abdomen is hurting her, she tells me she is hurting in the right upper quadrant. In the emergency room she was found to have a UTI, concern for left lower lobe pneumonia, increased oxygen requirements, hospice team was called for admission. I called [facility] and spoke to the nursing staff who told me that she has been doing well at the [facility], she did have a fall sometime ago, but no significant trauma. They tell me that this morning she was increasingly confused, her O2 sats were in the low 80s and she was more short of breath so she was brought [facility] for further evaluation. Denies any choking episodes, no aspiration events. Review of Systems General: Reports: ROS unobtainable due to mental status Medications/Allergies Home Medications Medication Instructions Recorded Confirmed Last Taken Type albuterol sulfate 90 mcg/actuation 2 puff inhalation Q4H PRN 01/13/20 03/08/22 Unknown History aerosol inhaler (Ventolin HFA) Shortness Of Breath baclofen 20 mg tablet 20 mg PO TID 01/13/20 03/08/22 01/13/20 History escitalopram oxalate 20 mg tablet 20 mg PO BID 01/13/20 03/08/22 Unknown History lisinopril 10 mg tablet 10 mg PO DAILY 01/13/20 03/08/22 01/13/20 History naloxone 4 mg/actuation nasal 1 spray intranasal . DIRECTED 01/13/20 03/08/22 Unknown History spray (Narcan) pregabalin 200 mg capsule 200 mg PO TID 01/13/20 03/08/22 01/13/20 History hydrocodone 7.5 mg-acetaminophen 1 tab PO Q6H PRN pain #20 tabs 03/09/21 03/08/22 Unknown Rx 325 mg tablet Front wheel walker #1 ea 05/06/21 03/08/22 Unknown Rx albuterol sulfate 2.5 mg/3 mL 2.5 mg inhalation Q6H PRN 02/21/22 03/08/22 Unknown History (0.083 %) solution for nebulization Shortness Of Breath alprazolam 0.5 mg tablet 0.5 mg PO TID PRN Anxiety 02/21/22 03/08/22 Unknown History atorvastatin 10 mg tablet 10 mg PO DAILY 02/21/22 03/08/22 Unknown History fluticasone propionate 230 2 puff inhalation Q12H 02/21/22 03/08/22 Unknown History mcg-salmeterol 21 mcg/actuation HFA inhaler (Advair HFA) furosemide 40 mg tablet (Lasix) 20 mg PO DAILY 02/21/22 03/08/22 Unknown History potassium chloride 10 mEq 10 meq PO DAILY 02/21/22 03/08/22 Unknown History capsule,extended release trazodone 100 mg tablet 50 - 100 mg PO BEDTIME 02/21/22 03/08/22 Unknown History acetaminophen 325 mg capsule 650 mg PO QID PRN Pain 03/08/22 03/08/22 Unknown History (Tylenol) aluminum-mag hydroxide-simethicone 30 ml PO QID PRN Constipation 03/08/22 03/08/22 Unknown History 200 mg-200 mg-20 mg/5 mL oral susp bisacodyl 10 mg rectal suppository 10 mg TX DAILY PRN Constipation 03/08/22 03/08/22 Unknown History (Dulcolax (bisacodyl)) bisacodyl 5 mg tablet,delayed 5 mg PO DAILY PRN Constipation 03/08/22 03/08/22 Unknown History release (Dulcolax (bisacodyl)) ergocalciferol (vitamin D2) 1,250 See Rx Instructions .Route .COMPLEX 03/08/22 03/08/22 Unknown History mcg (50,000 unit) capsule magnesium citrate 150 ml PO DAILY PRN Constipation 03/08/22 03/08/22 Unknown History magnesium hydroxide 400 mg/5 mL 30 ml PO DAILY PRN Constipation 03/08/22 03/08/22 Unknown History oral suspension (Milk of Magnesia) prednisone 20 mg tablet 20 mg PO TID 03/08/22 03/08/22 Unknown History Allergies Allergy/AdvReac Type Severity Reaction Status Date / Time buspirone [From BuSpar] Allergy ADR-Dizzine Verified 03/08/22 08:45 ss hydroxyzine [From Vistaril] Allergy ALGY-Hives Verified 03/08/22 08:45 ibuprofen Allergy Unknown Verified 03/08/22 08:45 ketorolac [From Toradol] Allergy ALGY-Rash Verified 03/08/22 08:45 PFSH Acute PFSH: Medical History CHF (congestive heart failure) Chronic back pain COPD (chronic obstructive pulmonary disease) Depression Surgical History History of cholecystectomy Family History Other CAD (coronary artery disease) Cancer Social History Smoking and tobacco status: current every day smoker Lives independently: Yes Household members: other Details: Son Marital status: Legally Vitals/I&O/Wt Last Vital Signs Temp 97.9 F 03/08/22 09:02 Pulse 88 03/08/22 09:02 Resp 18 03/08/22 09:02 BP 109/60 03/08/22 09:02 Pulse Ox 3 L 03/08/22 09:20 O2 Del Method 03/08/22 09:48 03/07/22 03/08/22 03/08/22 22:59 06:59 14:59 Intake Total 1100 / 1100 Output Total 900 / 900 Balance 200 / 200 Weight last 48 hrs Weight 81.057 kg Physical Exam Const: COMMON NORMALS: no acute distress EXAM LIMITATIONS: altered mental status ORIENTATION/CONSCIOUSNESS: Yes awake, Yes oriented to person and Yes confused; not oriented to place and not oriented to time HENMT: COMMON NORMALS: normocephalic HEAD & SCALP: normocephalic Eye: COMMON NORMALS: Equal, round and reactive pupils present and EOMs intact bilaterally Resp: COMMON NORMALS: normal respiratory effort, No retractions and No use of accessory muscles AUSCULTATION: crackles and wheezes Cardio: COMMON NORMALS: no JVD, regular rate, regular rhythm, S1 normal heart sound present and S2 normal heart sound present RATE: regular rate RHYTHM: regular rhythm HEART SOUNDS: S1 normal heart sound present and S2 normal heart sound present GI: COMMON NORMALS: Normal to inspection, nondistended, normoactive bowel sounds present, Soft to palpation and no masses Extremity: COMMON NORMALS: no pedal edema Neuro: OTHER: Confusion, does not follow neurologic testing Urinary Catheter Management: Beltre: Cath Placed During This Visit: yes Urinary Catheter Date of Insertion: 03/08/22 Urinary Catheter Time of Insertion: 06:15 Data : 03/08/22 06:07 03/08/22 06:07 Micro: Microbiology 03/08/22 09:00 Blood Culture - Preliminary Blood SPECIMEN COLLECTED 03/08/22 06:20 Blood Culture - Preliminary Blood SPECIMEN COLLECTED A&P Assessment and plan (1) Encephalopathy: (2) Cystitis: (3) Pneumonia: (4) COPD (chronic obstructive pulmonary disease): (5) Acute respiratory failure with hypoxia: (6) Healthcare-associated pneumonia: Plan Acute hypoxic respiratory failure -Secondary to COPD -Secondary to bilateral lower lobe pneumonia, likely healthcare associated Plan -We will admit to general medical floors -Monitor respiratory status closely -DuoNeb -Solu-Medrol -Vancomycin, cefepime -MRSA nares PCR, blood cultures, sputum cultures -Will order flu and COVID -Full code -Lovenox for DVT prophylaxis UTI, cystitis, cefepime as above follow urine culture 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 we will do order cardiac echocardiogram Acute encephalopathy secondary UTI, pneumonia, as above, aspiration precaution Sepsis, patient did have hypotension in the emergency room, responded to fluids, continue to monitor, elevated CRP, white blood cell count CHF, did receive fluids in the emergency room, BNP is elevated, does not look fluid overloaded hold off on fluid therapy Hyperkalemia, monitor, telemetry monitoring [facility] did state that recently they started her on our home dose of Lyrica 200 mg 3 times daily hold for now monitor mentation Patient takes hydrocodone at home, for chronic pain, resume once mentation improves Attestations Medical Necessity Statement*: The patient requires hospitalization, inpatient, greater than 2 midnights for UTI, pneumonia, acute respiratory failure, in Coding Level of Care Code Acute Apparel Manufacture Instructor for g Fwd Diagnoses Encephalopathy G93.40 Cystitis N30.90 Pneumonia J18.9 COPD (chronic obstructive pulmonary disease) J44.9 Acute respiratory failure with hypoxia J96.01 Healthcare-associated pneumonia J18.9
[2022-03-08 11:47] LABS: Glucose Point of Care 110 mg/dL (70-110)
[2022-03-08] MEDS: ipratropium-albuterol 3 mL Neb INHALATION ×4 (11:57→23:59)
--- NOTE | 2022-03-08 12:02 | ECG_ITS ---
[facility] Test Date: 2022-03-08 Pat Name: Sara Del Real Department: Room: 261 Gender: Female Circus Supervisor: : 1950 Requested By: Irving Rascon Order Number: [id number] Camila MD: Lindsay Allen M.D. Measurements Intervals [place] Rate: 89 P: 74 DE: 199 QRS: -43 QRSD: 106 T: 56 QT: 403 QTc: 493 Interpretive Statements SINUS RHYTHM WITH OCCASIONAL SUPRAVENTRICULAR PREMATURE COMPLEXES LEFT AXIS DEVIATION [QRS AXIS < -30] Compared to ECG 03/08/2022 08:05:00 No significant changes Electronically Signed On 03-09-2022 7:20:18 FLIGHT READINESS TECHNICIAN by Lindsay Allen M.D. [id number]
--- NOTE | 2022-03-08 13:57 | PC.OT ---
OT EVALUATION ATTEMPTED AT THIS TIME. PATIENT IS SLEEPING SOUNDLY; SNORING. WILL ATTEMPT AGAIN AT A LATER TIME.
[2022-03-08 14:19] LABS: ABG PCO2 53.1 mmHg (35-45); ABG PH Result 7.38 (7.35-7.45); Arterial Blood Gas Hematocrit 34.9 % (37-47); Blood Gas Allen Test Pos; Blood Gas Operator Identificat BROMA; Blood Gas Sample Site Radial, right; Blood Gas Sample Type Arterial; HCO3 ABG 31.2 mmol/L (22-26); Oxygen Device NC; PO2 ABG 57.4 mmHg (80.0-100.0)
[2022-03-08 16:45] LABS: Glucose Point of Care 146 mg/dL (70-110)
[2022-03-08] MEDS: cefepime 2,000 MG in sodium chloride 0.9% (plus) 50 ML 100 MG IV (17:27)
[2022-03-08] MEDS: escitalopram 10 mg Tablet 20 MG PO (17:29)
[2022-03-08] MEDS: HYDROcodone-acetaminophen 7.5-325 mg Tablet 1 TAB PO (18:12)
[2022-03-08] MEDS: budesonide 0.5 mg/2 mL Neb INHALATION (20:21)
[2022-03-08 20:34] LABS: Glucose Point of Care 214 mg/dL (70-110)
[2022-03-08] MEDS: atorvastatin 40 mg Tablet 10 MG PO (22:37)
[2022-03-09] VITALS (17 sets, daily range): BP systolic 111–158; BP diastolic 62–75; PULSE 76–98; RESP 12–20; TEMP 36.6–36.8; O2SAT 92–96
[2022-03-09] MEDS: HYDROcodone-acetaminophen 7.5-325 mg Tablet 1 TAB PO ×3 (00:40→13:33)
[2022-03-09] MEDS: ipratropium-albuterol 3 mL Neb INHALATION ×6 (03:09→23:25)
[2022-03-09] MEDS: vancomycin 1,000 MG in sodium chloride 0.9% 250 ML 250 MG IV ×2 (03:45→21:32)
[2022-03-09] MEDS: cefepime 2,000 MG in sodium chloride 0.9% (plus) 50 ML 100 MG IV ×2 (05:02→17:12)
[2022-03-09 05:35] LABS: Basophils % 0.2 %; Hematocrit 33.1 % (37.0-47.0); Hemoglobin 10.3 g/dL (11.5-15.3); Lymphocytes # 0.5 10^3/uL (0.8-4.8); Lymphocytes % 4.8 %; Mean Corpuscular HGB Conc 31.1 g/dL (30.0-36.0); Mean Corpuscular Hemoglobin 29.9 pg (28.0-34.0); Mean Corpuscular Volume 96.2 fl (81-99); Mean Platelet Volume 12.9 fL (7.4-10.4); Monocytes # 0.2 10^3/uL (0.2-0.9); Monocytes % 1.4 %; Neutrophils # 10.28 10^3/uL (1.8-7.7); Neutrophils % 92.7 %; Nucleated Red Blood Cells % 0 %; Platelet Count 130 10^3/cmm (130-400); Red Blood Count 3.44 10^6/uL (4.1-5.3); Red Cell Distribution Width 14.9 % (12.1-15.1); White Blood Count 11.1 10^3/uL (4.0-10.0)
[2022-03-09 06:00] LABS: NT Pro B Type Natriuretic Pept 1097 pg/mL (0-125); Procalcitonin 0.78 ng/mL (0-0.5)
[2022-03-09 06:16] LABS: Alanine Aminotransferase 14 U/L (0-33); Alkaline Phosphatase 68 U/L (35-105); Anion Gap 13.3 (5-19); Aspartate Amino Transferase 18 U/L (0-32); Blood Urea Nitrogen 23 mg/dL (8-23); Calcium 8.8 mg/dL (8.5-10.5); Carbon Dioxide 27 mmol/L (22-29); Chloride 101 mmol/L (98-107); Globulin 2.9 g/dL (1.3-4.6); Glomerular Filtration Rate 98.8 mL/min (90-130); Glucose 169 mg/dL (65-115); Magnesium 2.5 mg/dL (1.7-2.3); Osmolality Calculated 292 mOsm/kg (285-295); Phosphorus 2.5 mg/dL (2.5-4.5); Potassium 4.3 mmol/L (3.5-5.1); Sodium 137 mmol/L (136-145); Total Bilirubin 0.4 mg/dL (0.15-1.2); Total Protein 5.9 g/dL (6.6-8.7)
[2022-03-09 06:31] LABS: Estmated Average Glucose 108; Hemoglobin A1C 5.4 % (4.0-6.0)
[2022-03-09 06:38] LABS: Cortisol Random 6.21 ug/dL (2.47-19.5)
--- NOTE | 2022-03-09 06:48 | PC.NURSE ---
Report given to Lennie SHEPARD at this time
[2022-03-09 06:49] LABS: Glucose Point of Care 182 mg/dL (70-110)
[2022-03-09] MEDS: budesonide 0.5 mg/2 mL Neb INHALATION ×2 (08:13→19:36)
[2022-03-09] MEDS: nystatin 100,000 unit/mL UDC 5 mL 100000 UNIT PO ×4 (09:45→21:35)
[2022-03-09] MEDS: escitalopram 10 mg Tablet 20 MG PO ×2 (09:46→17:12)
[2022-03-09] MEDS: pantoprazole 40 mg SDV IVP (09:49)
[2022-03-09] MEDS: enoxaparin 40 mg/0.4 mL Syringe SUBCUT (09:49)
[2022-03-09 11:27] LABS: Glucose Point of Care 208 mg/dL (70-110)
--- NOTE | 2022-03-09 12:16 | PC.CHAP ---
Pastoral Care Encounter/Spiritual Assessment Type of Contact [] Declined spring assembler supervisor visit [] Patient/Family/Request visit [] Outpatient visit [] Follow-up visit [] Physician referral [] Code/Alert [x] Routine visit [] Staff referral [] Actively dying [] Patient sleeping [] Family support [] [] Out of room [] Palliative care [] [] Receiving care in room [] Pre-surgical visit [] Trauma [] Long length of stay [] ICU visit [] Other: Relational/Emotional Strength [] Patient feels connected with others/family/visitors/staff [] Distress [] Loneliness/isolation [] Abandonment Spirituality of Patient [x] Person of Darlene [] Attends Restoration of their Darlene [x] Believes in Prayer [] Reads Bible or Adventist materials [] There are Spiritual issues to be addressed Medical Education Manager Interventions [x] Prayer [] Active listening [] Non-anxious presence [] Spiritual/emotional support [] Crisis/trauma care [] Spiritual counseling [] Bereavement support [] Provided bereavement packet [] Provided Bible/devotional materials [] Provided toy/stuffed animal, coloring book to patient or family member [] Provided Communion [] Anointing/Bad Axe [] Salvation [x] Completed spiritual assessment [] Other: Impact on Illness or Injury [] Angry [] Fearful [] Anxious [] Often cries [] Exhaustion [] Unable to work [] Unable to attend hindu [] Unable to walk/stand [] Unable to read [] Unable to drive [] Unable to eat/drink [] Unable to sleep [] Unable to be with family [] Patient intubated [] Other: Summary Time spent with patient
--- NOTE | 2022-03-09 12:25 | P.PN_ITS ---
Subjective Subjective: Patient was seen this morning, she is much more alert, awake, following all commands, sitting up in a chair, no lightheadedness, no dizziness Vitals/I&O/Wt Last Vital Signs Temp 98.1 F 03/09/22 10:46 Pulse 88 03/09/22 11:24 Resp 20 H 03/09/22 11:20 BP 146/62 03/09/22 10:46 Pulse Ox 95 03/09/22 11:20 O2 Del Method 03/09/22 11:20 O2 Flow Rate 3 03/09/22 11:20 03/08/22 03/09/22 03/09/22 22:59 06:59 14:59 Intake Total 410 / 1860 300 / 2160 480 / 480 Output Total 350 / 1850 Balance 410 / 360 -50 / 310 480 / 480 Weight last 48 hrs Weight 81.057 kg Physical Exam Const: COMMON NORMALS: no acute distress and patient oriented x3 Resp: COMMON NORMALS: normal respiratory effort, No retractions and No use of accessory muscles AUSCULTATION: wheezes Cardio: COMMON NORMALS: regular rate, regular rhythm, S1 normal heart sound present and S2 normal heart sound present RATE: regular rate RHYTHM: regular rhythm HEART SOUNDS: S1 normal heart sound present and S2 normal heart sound present GI: COMMON NORMALS: Normal to inspection, nondistended, normoactive bowel sounds present and non-tender Extremity: COMMON NORMALS: no pedal edema Neuro: COMMON NORMALS: patient oriented x3 Psych: COMMON NORMALS: mental status grossly normal Urinary Catheter Management: Beltre: Cath Placed During This Visit: yes Reason for Continuing Indwelling Catheter: Accurate Measurement of Urinary Output in Critically Ill Patients Urinary Catheter Date of Insertion: 03/08/22 Urinary Catheter Time of Insertion: 06:15 Data 03/09/22 05:21 03/09/22 05:21 Micro: Microbiology 03/08/22 06:05 Urine Culture - Preliminary Urine,Clean Catch Gram Negative Rods 03/08/22 09:00 Blood Culture - Preliminary Blood NEGATIVE TO DATE 03/08/22 06:20 Blood Culture - Preliminary Blood NEGATIVE TO DATE A&P Assessment and plan (1) Encephalopathy: (2) Cystitis: (3) Pneumonia: (4) COPD (chronic obstructive pulmonary disease): (5) Acute respiratory failure with hypoxia: (6) Healthcare-associated pneumonia: Plan Acute hypoxic respiratory failure -Secondary to COPD -Secondary to bilateral lower lobe pneumonia, likely healthcare associated Plan -We will admit to general medical floors -Monitor respiratory status closely -DuoNeb -Solu-Medrol -Vancomycin, cefepime -MRSA nares PCR, blood cultures, sputum cultures -Full code -Lovenox for DVT prophylaxis Bilateral lower lobe pneumonia, as above UTI, cystitis, cefepime as above follow urine culture 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 we will do order cardiac echocardiogram Acute encephalopathy secondary UTI, pneumonia, as above, aspiration precaution, resolving Sepsis, patient did have hypotension in the emergency room, responded to fluids, continue to monitor, elevated CRP, white blood cell count, resolving CHF, did receive fluids in the emergency room, BNP is elevated, does not look fluid overloaded hold off on fluid therapy Hyperkalemia, resolving monitor, telemetry monitoring [facility] did state that recently they started her on our home dose of Lyrica 200 mg 3 times daily hold for now monitor mentation Resume home hydrocodone Attestations Medical Necessity Statement*: Patient requires hospitalization for acute respiratory failure, UTI, pneumonia, encephalopathy Coding Level of Care Code Acute Director Executive Communications for [facility] Diagnoses Encephalopathy G93.40 Cystitis N30.90 Pneumonia J18.9 COPD (chronic obstructive pulmonary disease) J44.9 Acute respiratory failure with hypoxia J96.01 Healthcare-associated pneumonia J18.9
[2022-03-09] MEDS: ALPRAZolam 0.5 mg Tablet PO (19:48)
[2022-03-09 20:38] LABS: Glucose Point of Care 158 mg/dL (70-110)
[2022-03-09 20:42] LABS: Vancomycin Trough 10.1 ug/mL (10-15)
[2022-03-09] MEDS: trazodone 50 mg Tablet PO (21:35)
[2022-03-09] MEDS: atorvastatin 40 mg Tablet 10 MG PO (21:36)
[2022-03-10] VITALS (11 sets, daily range): BP systolic 130–156; BP diastolic 60–72; PULSE 76–89; RESP 12–20; TEMP 36.5–36.9; O2SAT 91–97
[2022-03-10] MEDS: ipratropium-albuterol 3 mL Neb INHALATION ×4 (03:48→15:43)
[2022-03-10] MEDS: cefepime 2,000 MG in sodium chloride 0.9% (plus) 50 ML 100 MG IV (05:05)
[2022-03-10 06:26] LABS: Basophils % 0.1 %; Hematocrit 33.1 % (37.0-47.0); Hemoglobin 10.4 g/dL (11.5-15.3); Lymphocytes # 0.6 10^3/uL (0.8-4.8); Lymphocytes % 5.4 %; Mean Corpuscular HGB Conc 31.4 g/dL (30.0-36.0); Mean Corpuscular Hemoglobin 30.2 pg (28.0-34.0); Mean Corpuscular Volume 96.2 fl (81-99); Mean Platelet Volume 11.7 fL (7.4-10.4); Monocytes # 0.5 10^3/uL (0.2-0.9); Monocytes % 4.1 %; Neutrophils % 88.8 %; Nucleated Red Blood Cells % 0 %; Platelet Count 155 10^3/cmm (130-400); Red Blood Count 3.44 10^6/uL (4.1-5.3); Red Cell Distribution Width 14.9 % (12.1-15.1); White Blood Count 10.9 10^3/uL (4.0-10.0)
[2022-03-10 06:48] LABS: NT Pro B Type Natriuretic Pept 2142 pg/mL (0-125); Procalcitonin 0.49 ng/mL (0-0.5)
[2022-03-10 06:50] LABS: Glucose Point of Care 152 mg/dL (70-110)
[2022-03-10 06:59] LABS: Alanine Aminotransferase 13 U/L (0-33); Albumin Level 3.1 g/dL (3.5-5.2); Alkaline Phosphatase 66 U/L (35-105); Anion Gap 15.2 (5-19); Aspartate Amino Transferase 12 U/L (0-32); Blood Urea Nitrogen 24 mg/dL (8-23); C Reactive Protein 67.2 mg/L (0.0-4.9); Calcium 9.2 mg/dL (8.5-10.5); Carbon Dioxide 27 mmol/L (22-29); Chloride 103 mmol/L (98-107); Glomerular Filtration Rate 98.8 mL/min (90-130); Glucose 155 mg/dL (65-115); Magnesium 2.3 mg/dL (1.7-2.3); Osmolality Calculated 299 mOsm/kg (285-295); Phosphorus 3.2 mg/dL (2.5-4.5); Potassium 4.2 mmol/L (3.5-5.1); Sodium 141 mmol/L (136-145); Total Bilirubin 0.3 mg/dL (0.15-1.2); Total Protein 6.1 g/dL (6.6-8.7)
[2022-03-10] MEDS: budesonide 0.5 mg/2 mL Neb INHALATION (07:42)
[2022-03-10] MEDS: escitalopram 10 mg Tablet 20 MG PO ×2 (08:44→18:18)
[2022-03-10] MEDS: nystatin 100,000 unit/mL UDC 5 mL 100000 UNIT PO ×3 (08:49→18:15)
[2022-03-10] MEDS: HYDROcodone-acetaminophen 7.5-325 mg Tablet 1 TAB PO (08:59)
[2022-03-10] MEDS: pantoprazole 40 mg SDV IVP (10:51)
[2022-03-10] MEDS: FUROsemide 10 mg/mL SDV 4mL 40 MG IVP (10:51)
[2022-03-10] MEDS: enoxaparin 40 mg/0.4 mL Syringe SUBCUT (10:52)
--- NOTE | 2022-03-10 11:36 | P.DS_ITS ---
Discharge Providers Date of Admission: 03/08/22 07:25 Date of Discharge: March 10, 2022 Attending Provider at Admission: Claus Hernandez MD Attending Provider at Discharge: Claus Hernandez MD Primary Care Provider: Carroll Johnson Diagnoses at Discharge Discharge Diagnosis (1) Encephalopathy: Status: Acute (2) Cystitis: Status: Acute (3) Pneumonia: Status: Acute (4) COPD (chronic obstructive pulmonary disease): Status: Acute (5) Acute respiratory failure with hypoxia: Status: Acute (6) Healthcare-associated pneumonia: Status: Acute Reason for Visit Reason for Visit: not responding like normal Hospital Course Hospital Course Sara Del Real is a 72 year old female with a past medical history of COPD, on oxygen, CHF, hypertension depression, anxiety, chronic back pain on narcotics, who presents to [facility] from [facility] due to altered mental status, low oxygen, shortness of breath.? Patient presented to [facility] for acute hypoxic respiratory failure, secondary to COPD, bilateral lower lobe pneumonia, healthcare associated pneumonia, received broad-spectrum antibiotic therapy, her sputum culture showed gram-negative rods. She has grown Serratia in the past. Overall she clinically improved, will discharge on 5 remaining days of Levaquin. Follow-up with pulmonary as outpatient. She also had acute encephalopathy secondary UTI, received antibiotic therapy, clinically improved, alert oriented x3 at time of discharge, discharged on Levaquin for 5 remaining days She showed a possible cardiac lipoma on CT of her chest, I am going to have her follow-up with cardiology as outpatient. Physical Exam Const: COMMON NORMALS: no acute distress and patient oriented x3 Resp: COMMON NORMALS: normal respiratory effort, No retractions, No use of accessory muscles and clear to auscultation bilaterally AUSCULTATION: clear to auscultation bilaterally Cardio: COMMON NORMALS: regular rate, regular rhythm, S1 normal heart sound present and S2 normal heart sound present RATE: regular rate RHYTHM: regular rhythm HEART SOUNDS: S1 normal heart sound present and S2 normal heart sound present GI: COMMON NORMALS: Normal to inspection, nondistended, normoactive bowel sounds present and non-tender Extremity: COMMON NORMALS: no pedal edema Neuro: COMMON NORMALS: patient oriented x3 Psych: COMMON NORMALS: mental status grossly normal Urinary Catheter Management: Beltre: Cath Placed During This Visit: yes Reason for Continuing Indwelling Catheter: Accurate Measurement of Urinary Output in Critically Ill Patients Urinary Catheter Date of Insertion: 03/08/22 Urinary Catheter Time of Insertion: 06:15 Discharge Data Studies Completed and Pending Completed Studies During Hospitalization Category Date Time Status CT chest abdomen pelvis [[place] [id number] Cat Scan 03/08/22 08:17 Completed ] Stat CT head wo con* [id number] Stat Cat Scan 03/08/22 06:03 Completed XR chest 1V portable [id number] Stat Exams 03/08/22 06:01 Completed Pending at discharge Category Date Time Status Blood Culture Stat Lab 03/08/22 09:00 Results C Reactive Protein AM LABS Lab 03/11/22 04:00 Ordered Complete Blood Count w/Auto AM LABS Lab 03/11/22 04:00 Ordered Complete Blood Count w/Auto AM LABS Lab 03/12/22 04:00 Ordered Comprehensive Metabolic Panel AM LABS Lab 03/11/22 04:00 Ordered Magnesium AM LABS Lab 03/11/22 04:00 Ordered NT Pro B Type Natriuretic Pept QAM Lab 03/11/22 06:00 Ordered Phosphorus AM LABS Lab 03/11/22 04:00 Ordered Procalcitonin AM LABS Lab 03/11/22 04:00 Ordered Sputum Culture and Gram Stain Stat Lab 03/08/22 16:25 Results Urine Culture Stat Lab 03/08/22 06:05 Results CV. echo complete* [id number] Routine Ultrasound 03/08/22 11:10 Taken Radiology Impressions Chest X-Ray 03/08/22 06:01 IMPRESSION: 1. Left lower lobe infiltrate suggesting pneumonia. Head CT 03/08/22 06:03 IMPRESSION: 1. No acute intracranial abnormality. 2. Chronic white matter ischemic changes. Chest/Abdomen/Pelvis CT 03/08/22 08:17 IMPRESSION: 1. Patchy infiltrates in both lower lobes LEFT greater than RIGHT with subpleural opacities. Correlation for pneumonia. Tiny LEFT pleural effusion. 2. 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 This can be further evaluated with echocardiography. Compression of the RIGHT atrium. 3. Aberrant RIGHT subclavian artery. 4. Mild pancolonic constipation. 5. No other suspicious findings in the abdomen or pelvis. Laboratory Results WBC 10.9 10^3/uL (4.0-10.0) H 03/10/22 06:17 RBC 3.44 10^6/uL (4.1-5.3) L 03/10/22 06:17 Hgb 10.4 g/dL (11.5-15.3) L 03/10/22 06:17 Hct 33.1 % (37.0-47.0) L 03/10/22 06:17 MCV 96.2 fl (81-99) 03/10/22 06:17 MCH 30.2 pg (28.0-34.0) 03/10/22 06:17 MCHC 31.4 g/dL (30.0-36.0) 03/10/22 06:17 RDW 14.9 % (12.1-15.1) 03/10/22 06:17 Plt Count 155 10^3/cmm (130-400) 03/10/22 06:17 MPV 11.7 fL (7.4-10.4) H 03/10/22 06:17 Neut % (Auto) 88.8 % 03/10/22 06:17 Lymph % (Auto) 5.4 % 03/10/22 06:17 [place] % (Auto) 4.1 % 03/10/22 06:17 Eos % (Auto) 0.0 % 03/10/22 06:17 Baso % (Auto) 0.1 % 03/10/22 06:17 Neut # (Auto) 9.70 10^3/uL (1.8-7.7) H 03/10/22 06:17 Lymph # (Auto) 0.6 10^3/uL (0.8-4.8) L 03/10/22 06:17 [place] # (Auto) 0.5 10^3/uL (0.2-0.9) 03/10/22 06:17 Eos # (Auto) 0.0 10^3/uL (0.0-0.8) 03/10/22 06:17 Baso # (Auto) 0.0 10^3/uL (0.0-0.1) 03/10/22 06:17 Nucleated RBC % (auto) 0 % 03/10/22 06:17 Nucleated RBCs # 0.0 /100WBC 03/10/22 06:17 Specimen Type Arterial 03/08/22 13:56 Sample Site Radial, right 03/08/22 13:56 ABG pH 7.38 (7.35-7.45) 03/08/22 13:56 ABG pCO2 53.1 mmHg (35-45) H 03/08/22 13:56 ABG pO2 57.4 mmHg (80.0-100.0) L 03/08/22 13:56 ABG HCO3 31.2 mmol/L (22-26) H 03/08/22 13:56 ABG O2 Saturation 94.0 03/08/22 06:17 ABG Base Excess 5.0 mmol/L (-2.0-2.0) H 03/08/22 13:56 Moise Test Pos 03/08/22 13:56 A-a O2 Gradient 24.4 mmHg (5-10) H 03/08/22 06:17 Hematocrit 34.9 % (37-47) L 03/08/22 13:56 Hgb O2 Saturation 91.8 % (95-100) L 03/08/22 06:17 Carboxyhemoglobin 1.6 %THgb (0.4-20.1) 03/08/22 06:17 Methemoglobin 0.7 % (0.4-1.5) 03/08/22 06:17 Total Hemoglobin 11.5 g/dL (12-16) L 03/08/22 06:17 Sodium 138.0 mmol/L (131-143) 03/08/22 06:17 Potassium 4.3 mmol/L (3.5-5.0) 03/08/22 06:17 Glucose 120.0 mg/dL (70-115) H 03/08/22 06:17 Ionized Calcium 1.2 mmol/L (1.1-1.4) 03/08/22 06:17 O2 Delivery Device Nc 03/08/22 13:56 O2 Liters/Min 4.0 % 03/08/22 13:56 FiO2 44.0 % 03/08/22 06:17 Gore Seamer ID Emily 03/08/22 13:56 Sodium 141 mmol/L (136-145) 03/10/22 06:17 Potassium 4.2 mmol/L (3.5-5.1) 03/10/22 06:17 Chloride 103 mmol/L (98-107) 03/10/22 06:17 Carbon Dioxide 27 mmol/L (22-29) 03/10/22 06:17 Anion Gap 15.2 (5-19) 03/10/22 06:17 BUN 24 mg/dL (8-23) H 03/10/22 06:17 Creatinine 0.6 mg/dL (0.5-0.9) 03/10/22 06:17 GFR Calculation 98.8 mL/min (90-130) 03/10/22 06:17 Glucose 155 mg/dL (65-115) H 03/10/22 06:17 POC Glucose 152 mg/dL (70-110) H 03/10/22 06:46 Estimat Average Glucose 108 03/08/22 05:21 Hemoglobin A1c 5.4 % (4.0-6.0) 03/08/22 05:21 Calculated Osmolality 299 mOsm/kg (285-295) H 03/10/22 06:17 Lactic Acid 1.6 mmol/L (0.5-2.2) 03/08/22 06:07 Calcium 9.2 mg/dL (8.5-10.5) 03/10/22 06:17 Phosphorus 3.2 mg/dL (2.5-4.5) 03/10/22 06:17 Magnesium 2.3 mg/dL (1.7-2.3) 03/10/22 06:17 Total Bilirubin 0.3 mg/dL (0.15-1.2) 03/10/22 06:17 AST 12 U/L (0-32) 03/10/22 06:17 ALT 13 U/L (0-33) 03/10/22 06:17 Alkaline Phosphatase 66 U/L (35-105) 03/10/22 06:17 Creatine Kinase 312 U/L (26-192) H 03/08/22 06:07 Troponin T Baseline 19 ng/L (0-10) H 03/08/22 06:07 Troponin T 120 Minute 19.51 ng/L (0-10) H 03/08/22 09:00 Delta Troponin T 0.51 ABS# (0-10) 03/08/22 09:00 C-Reactive Protein 67.2 mg/L (0.0-4.9) H 03/10/22 06:17 NT-Pro-B Natriuret Pep 2142 pg/mL (0-125) H 03/10/22 06:17 Total Protein 6.1 g/dL (6.6-8.7) L 03/10/22 06:17 Albumin 3.1 g/dL (3.5-5.2) L 03/10/22 06:17 Globulin 3.0 g/dL (1.3-4.6) 03/10/22 06:17 Lipase 8 U/L (13-60) L 03/08/22 06:07 Procalcitonin 0.49 ng/mL (0-0.5) 03/10/22 06:17 TSH 1.14 uIU/mL (0.27-4.20) 03/08/22 08:17 Random Cortisol 6.21 ug/dL (2.47-19.5) 03/08/22 05:21 Urine Color Yellow (Yellow) 03/08/22 06:05 Urine Appearance Sl hazy (CLEAR) A 03/08/22 06:05 Urine pH 5 (5-7) 03/08/22 06:05 Ur Specific [place] 1.010 (1.005-1.030) 03/08/22 06:05 Urine Protein Neg (Negative) 03/08/22 06:05 Urine Glucose (UA) Norm (Normal) 03/08/22 06:05 Urine Ketones Negative (Negative) 03/08/22 06:05 Urine Blood Neg (Negative) 03/08/22 06:05 Urine Nitrate Positive (Negative) H 03/08/22 06:05 Urine Bilirubin Neg (Negative) 03/08/22 06:05 Urine Urobilinogen Norm mg/dL (Negative) 03/08/22 06:05 Ur Leukocyte Esterase 2+ (Negative) H 03/08/22 06:05 Urine RBC 0-4 /hpf (0-2) H 03/08/22 06:05 Urine WBC 25-40 /hpf (0-5) H 03/08/22 06:05 Ur Squamous Epith Cells 0-4 /hpf (0-5) H 03/08/22 06:05 Amorphous Sediment Not Reportable 03/08/22 06:05 Urine Bacteria 2+ /hpf (NONE) H 03/08/22 06:05 Urine Mucus Trace /hpf 03/08/22 06:05 Vancomycin Trough 10.1 ug/mL (10-15) 03/09/22 20:05 Vitals Last Vital Signs Temp 98.2 F 03/10/22 11:24 Pulse 76 03/10/22 11:24 Resp 20 H 03/10/22 11:24 BP 140/66 03/10/22 11:24 Pulse Ox 94 03/10/22 11:24 O2 Del Method 03/10/22 11:24 O2 Flow Rate 3 03/10/22 11:24 Discharge Plan Discharge Patient Disposition: Xfer SNF Condition: Stable Prescriptions: New nystatin 100,000 unit/mL Suspension 100,000 unit PO QID 5 Days Qty: 20 0RF levofloxacin 750 mg tablet 750 mg PO DAILY 5 Days Qty: 5 0RF prednisone 20 mg tablet 20 mg PO BID 7 Days Qty: 14 0RF Continued (DME) Front wheel walker See Rx Instructions .Route .MEDSUPPLY Qty: 1 0RF Rx Instructions: As directed baclofen 20 mg tablet 20 mg PO TID lisinopril 10 mg tablet 10 mg PO DAILY albuterol sulfate [Ventolin HFA] 90 mcg/actuation HFA aerosol inhaler 2 puff INHALATION Q4H PRN (Reason: Shortness Of Breath) escitalopram oxalate 20 mg tablet 20 mg PO BID naloxone [Narcan] 4 mg/actuation spray,non-aerosol 1 spray intranasal . DIRECTED hydrocodone-acetaminophen 7.5-325 mg tablet 1 tab PO Q6H PRN (Reason: pain) Qty: 20 0RF Milk of Magnesia 400 mg/5 mL Suspension 30 ml PO DAILY PRN (Reason: Constipation) Dulcolax (bisacodyl) 10 mg Suppository 10 mg OH DAILY PRN (Reason: Constipation) magnesium citrate Solution 150 ml PO DAILY PRN (Reason: Constipation) Dulcolax (bisacodyl) 5 mg Tablet,Delayed Release (Dr/Ec) 5 mg PO DAILY PRN (Reason: Constipation) alum-mag hydroxide-simeth 200-200-20 mg/5 mL Suspension 30 ml PO QID PRN (Reason: Constipation) Rx Instructions: administer between meals and at bedtime Tylenol 325 mg Capsule 650 mg PO QID PRN (Reason: Pain) ergocalciferol (vitamin D2) 1,250 mcg (50,000 unit) capsule See Rx Instructions .ROUTE .COMPLEX Rx Instructions: once weekly furosemide [Lasix] 40 mg Tablet 20 mg PO DAILY potassium chloride 10 mEq Capsule, Extended Release 10 meq PO DAILY albuterol sulfate 2.5 mg /3 mL (0.083 %) solution for nebulization 2.5 mg inhalation Q6H PRN (Reason: Shortness Of Breath) atorvastatin 10 mg Tablet 10 mg PO DAILY alprazolam 0.5 mg tablet 0.5 mg PO TID PRN (Reason: Anxiety) trazodone 100 mg Tablet 50 - 100 mg PO BEDTIME Advair HFA 230-21 mcg/actuation HFA aerosol inhaler 2 puff INHALATION Q12H Changed pregabalin 200 mg capsule 200 mg PO DAILY 30 Days Qty: 30 0RF Discontinued prednisone 20 mg tablet 20 mg PO TID Discharge Orders: Discharge Order (Routine); Ordered 03/10/22 Ordered By: Claus Hernandez Referrals: Carroll Johnson [Primary Care Provider] - Discharge Diet: Cardiac Discharge Activity: Resume usual activity Activity Restrictions/Additional Instructions: - Take antibiotic's as prescribed -Please follow-up with primary care provider in 1 week -Please take steroids as prescribed Discharge Attestations Time Spent in Discharge Care*: less than 30 min Quality Metrics Clinical Quality Measures [ No reported AMI, CVA or VTE this stay] Coding Level of Care Code Acute Chg FW DC note Diagnoses Encephalopathy G93.40 Cystitis N30.90 Pneumonia J18.9 COPD (chronic obstructive pulmonary disease) J44.9 Acute respiratory failure with hypoxia J96.01 Healthcare-associated pneumonia J18.9
--- NOTE | 2022-03-10 13:03 | PC.NURSE ---
gibson cath dcd in antisipation of discharge
--- NOTE | 2022-03-10 15:15 | PC.OT ---
OT TREATMENT HELD TODAY DUE TO SCHEDULED PATIENT D/C
[2022-03-10] MEDS: nitrofurantoin SR (BID) 100 mg Capsule PO (16:04)
[2022-03-10 16:41] LABS: Glucose Point of Care 169 mg/dL (70-110)
== END 2022-03-10 18:42 | disposition skilled nursing facility (03) | DRG 193 ==
LOC: ER 07:48 → MEDSURG 08:30
PROVIDERS: Admitting Provider Family Medicine; Emergency Provider Family Medicine; PCP Family Medicine; Visit Provider Family Medicine
DX: J18.9 Pneumonia, unspecified organism (principal); G93.41 Metabolic encephalopathy; J96.01 Acute respiratory failure with hypoxia; J44.0 Chronic obstructive pulmonary disease with (acute) lower respiratory infection; B37.0 Candidal stomatitis; Z16.39 Resistance to other specified antimicrobial drug; Y95 Nosocomial condition; N30.90 Cystitis, unspecified without hematuria; E87.5 Hyperkalemia; Z99.81 Dependence on supplemental oxygen; I50.9 Heart failure, unspecified; I11.0 Hypertensive heart disease with heart failure; F32.A Depression, unspecified; F41.9 Anxiety disorder, unspecified; G89.29 Other chronic pain; M54.9 Dorsalgia, unspecified; Z79.891 Long term (current) use of opiate analgesic; F17.200 Nicotine dependence, unspecified, uncomplicated; D17.9 Benign lipomatous neoplasm, unspecified; I95.9 Hypotension, unspecified; Z79.51 Long term (current) use of inhaled steroids; B96.20 Unspecified Escherichia coli [E. coli] as the cause of diseases classified elsewhere
CPT/HCPCS: 36415; 36416; 36600; 51702; 70450; 71045; 71250; 74176; 80051; 80053; 80202; 81001; 82330; 82533; 82550; 82803; 82805; 82962; 83036; 83605; 83690; 83735; 83880; 84100; 84145; 84443; 84484; 85025; 86140; 87040; 87070; 87077; 87086; 87186; 87205; 87641; 93005; 93306; 94640; 94762; 96365; 96367; 96372; 97116; 97161; 97165; 97530; 99285; C9113; J0692; J0743; J1650; J1940; J2920; J3370; J3475; J7030; J7050; J7626